=== PATIENT | male | born 1950 | race Two or more races ===

== ENCOUNTER 2016-12-28 01:03 | Day surgery (SDC) | payer MEDICARE, OTHER ==
[~2016-12-28] VITALS: Ht 177.8 cm; Wt 93.0 kg
[~2016-12-28 01:03] MED LIST: ALIS300T PO; ASCO500C49 PO; ASPI81CH43 OR; CARV6.2551 PO; CHL4PW GT; CHOL100040 PO; FURO40TA OR; LISI40TA PO; OMEG100078 PO; OXYM-15; POTA20TA53 PO; SIMV-13 OR; VANC500I IV
[2016-12-28 01:39] LABS: Basophils # (auto) 0.1 uL; Basophils % (auto) 0.8 % (0.0-2.0); Eosinophils # (auto) 0 uL; Eosinophils % (auto) 0.3 % (0.0-7.0); Hematocrit 30.8 % (41.0-53.0); Hemoglobin 9.7 g/dL (13.5-17.5); Lymphocytes # (auto) 1.1 uL; Mean Corpuscular Hemoglobin 27.6 pg (28.0-32.0); Mean Corpuscular Hgb Conc. 31.4 g/dL (32.0-36.0); Mean Corpuscular Volume 87.8 fL (80.0-100.0); Monocytes # (auto) 0.9 uL; Monocytes % (auto) 10.2 % (0.0-12.0); Neutrophils # (auto) 6.8 uL; Neutrophils % (auto) 76.7 % (37.0-80.0); Platelet Count (auto) 286 10^3/uL (140-450); Red Cell Distribution Width 16.5 % (11.6-16.0); White Blood Cell 8.9 10^3/uL (4.4-10.8)
[2016-12-28 01:55] LABS: INR 1.13 (0.9-1.15); Partial Thromboplastin Time 36.2 sec (22.64-33.71); Prothrombin Time 12.2 sec (9.37-12.3)
[2016-12-28 01:57] LABS: Albumin 2.6 g/dL (3.4-5.0); BUN/Creatinine Ratio 30.8; Calcium 8.5 mg/dL (8.5-10.1)
[2016-12-28 01:59] LABS: Bilirubin, Total 1.5 mg/dL (0.2-1.0); Total Protein 7.6 g/dL (6.4-8.2)
[2016-12-28] MEDS ORDERED: SODIUM CHLORIDE 0.9% 1,000 ML IV ONE (06:56)
[2016-12-28] MEDS ORDERED: ceFAZolin 1GM/50ML D5W 50 ML IV ONE (09:59)
[2016-12-28] MEDS ORDERED: ACCU-CHEK COMFORT CURVE STRIP VI ONE (10:15)
[2016-12-28] MEDS ORDERED: HYDROmorphone HCL 2 MG/ML VL IV PRN (10:15)
[2016-12-28] MEDS ORDERED: METOCLOPRAMIDE HCL 5MG/ml INJ 2ml VIAL IV ONE (10:15)
[2016-12-28 11:59] VITALS: BP 140/69
[2017-01-18] MEDS ORDERED: INS7030I SC (12:54)
[2017-01-18] MEDS ORDERED: OMEG1CAP31 PO (12:54)
[2017-01-18] MEDS ORDERED: MULTCAP45 PO (12:54)
[2017-01-18] MEDS ORDERED: CLOP75TA28 PO (12:54)
[2017-01-18] MEDS ORDERED: [UNRECOGNIZED DRUG - CODE] IV (12:54)
== END 2016-12-28 12:09 | disposition home or self-care (01) ==
LOC: ER 01:05 → OR 1 01:06 → ER 09:47 → OR 1 12:09
PROVIDERS: ATTEND Podiatrist Foot & Ankle Surgery
DX: T87.81 Dehiscence of amputation stump (principal); I20.9 Angina pectoris, unspecified; I50.9 Heart failure, unspecified; F41.9 Anxiety disorder, unspecified; Z95.1 Presence of aortocoronary bypass graft
CPT/HCPCS: 15002; 15271; 36415; 71020; 73630; 80053; 82962; 83735; 85025; 85610; 85730; 87070; 87075; 87205; 88304; 88312; 93005; C1887; J0690; J2250; J2405; J2704; J3010; J3490; J7030; L3260; Q4126; Q4137

== ENCOUNTER → 2017-01-03 | Outpatient (CLI) | payer MEDICARE, OTHER ==
[2017-01-03] VITALS (8 sets, daily range): BP systolic 119–148; BP diastolic 59–77
[~2017-01-03] MED LIST changes: +CYANOCOBALAMIN (B-12) 1000 MCG/1 ML VIAL IM ONE; +CYANOCOBALAMIN (B-12) 1000 MCG/1 ML VIAL ONE; +DOBUTamine 1000MCG/ML 250 ML IV ONE; +FUROSEMIDE 100 MG/10ML VIAL IV ONE; +FUROSEMIDE 40 MG/4 ML VIAL ONE; +POTASSIUM CHL 10 Meq TABLET PO ONE; +POTASSIUM CHL 20 Meq TABLET PO ONE
[2017-01-03 10:26] LABS: Basophils # (auto) 0 uL; Basophils % (auto) 0.5 % (0.0-2.0); Eosinophils # (auto) 0 uL; Eosinophils % (auto) 0.5 % (0.0-7.0); Hematocrit 27.7 % (41.0-53.0); Hemoglobin 8.9 g/dL (13.5-17.5); Lymphocytes # (auto) 0.9 uL; Lymphocytes % (auto) 13.5 % (10.0-50.0); Mean Corpuscular Hemoglobin 27.8 pg (28.0-32.0); Mean Corpuscular Hgb Conc. 32.2 g/dL (32.0-36.0); Mean Corpuscular Volume 86.3 fL (80.0-100.0); Monocytes # (auto) 0.8 uL; Monocytes % (auto) 11.9 % (0.0-12.0); Neutrophils # (auto) 4.8 uL; Neutrophils % (auto) 73.6 % (37.0-80.0); Platelet Count (auto) 243 10^3/uL (140-450); Red Cell Distribution Width 18.1 % (11.6-16.0); SUSPECT VIEW TRANSMISSION; White Blood Cell 6.5 10^3/uL (4.4-10.8)
[2017-01-03 10:36] LABS: BUN/Creatinine Ratio 35.5; Calcium 8.2 mg/dL (8.5-10.1); Potassium 4.4 mmol/L (3.5-5.1)
[2017-01-03 10:46] LABS: B-Type Natriuretic Peptide 1644.62 pg/mL (0-100); Temperature: 22.5 C (20.0-25.0)
== END | disposition home or self-care (01) ==
LOC: CHF HDHVI 08:58
PROVIDERS: ATTEND Internal Medicine Cardiovascular Disease
DX: I10 Essential (primary) hypertension (principal); E11.9 Type 2 diabetes mellitus without complications; D64.9 Anemia, unspecified; E55.9 Vitamin D deficiency, unspecified
CPT/HCPCS: 36415; 80048; 82306; 83036; 83735; 83880; 85025; 96365; 96366; 96372; 96374; 96375; G0463; J1642

== ENCOUNTER → 2017-01-05 | Outpatient (CLI) | payer MEDICARE, OTHER ==
[2017-01-03 12:49] VITALS: BP 150/70
[2017-01-05] VITALS (8 sets, daily range): BP systolic 130–151; BP diastolic 61–80
[~2017-01-05] MED LIST changes: -CYANOCOBALAMIN (B-12) 1000 MCG/1 ML VIAL IM ONE; -CYANOCOBALAMIN (B-12) 1000 MCG/1 ML VIAL ONE; -FUROSEMIDE 100 MG/10ML VIAL IV ONE; +FUROSEMIDE 40 MG/4 ML VIAL IV ONE; -POTASSIUM CHL 20 Meq TABLET PO ONE
== END | disposition home or self-care (01) ==
LOC: CHF HDHVI 09:03
PROVIDERS: ATTEND Internal Medicine Cardiovascular Disease
DX: I11.0 Hypertensive heart disease with heart failure (principal); I50.9 Heart failure, unspecified; I25.10 Atherosclerotic heart disease of native coronary artery without angina pectoris; D64.9 Anemia, unspecified; Z95.1 Presence of aortocoronary bypass graft
CPT/HCPCS: 96365; 96366; 96375; G0463; J1250; J1642; J1940

== ENCOUNTER → 2017-01-10 | Outpatient (CLI) | payer MEDICARE, OTHER ==
[2017-01-10] VITALS (10 sets, daily range): BP systolic 120–150; BP diastolic 64–74
[~2017-01-10] MED LIST changes: +CYANOCOBALAMIN (B-12) 1000 MCG/1 ML VIAL IM ONE; +CYANOCOBALAMIN (B-12) 1000 MCG/1 ML VIAL ONE
[2017-01-10 16:26] LABS: Potassium 4.5 mmol/L (3.5-5.1)
[2017-01-10 16:33] LABS: Basophils # (auto) 0 uL; Basophils % (auto) 0.5 % (0.0-2.0); Eosinophils # (auto) 0.1 uL; Eosinophils % (auto) 1.1 % (0.0-7.0); Hematocrit 26.8 % (41.0-53.0); Hemoglobin 8.7 g/dL (13.5-17.5); Lymphocytes # (auto) 1.1 uL; Lymphocytes % (auto) 14.7 % (10.0-50.0); Mean Corpuscular Hemoglobin 27.7 pg (28.0-32.0); Mean Corpuscular Hgb Conc. 32.4 g/dL (32.0-36.0); Mean Corpuscular Volume 85.3 fL (80.0-100.0); Mean Platelet Volume 11.4 fL (7.4-10.4); Monocytes # (auto) 0.9 uL; Monocytes % (auto) 11.7 % (0.0-12.0); Neutrophils # (auto) 5.2 uL; Nucleated Red Blood Cells % 2.3 %; Platelet Count (auto) 234 10^3/uL (140-450); Red Cell Distribution Width 18.2 % (11.6-16.0); SUSPECT VIEW TRANSMISSION; White Blood Cell 7.3 10^3/uL (4.4-10.8)
[2017-01-10 16:48] LABS: B-Type Natriuretic Peptide 1137.46 pg/mL (0-100); Temperature: 23.4 C (20.0-25.0)
== END | disposition home or self-care (01) ==
LOC: CHF HDHVI 09:00
PROVIDERS: ATTEND Internal Medicine Cardiovascular Disease
DX: I50.9 Heart failure, unspecified (principal); R94.4 Abnormal results of kidney function studies; D64.9 Anemia, unspecified; E87.6 Hypokalemia
CPT/HCPCS: 36415; 82565; 83880; 84132; 84520; 85025; 96365; 96366; 96372; 96375; G0463; J1642

== ENCOUNTER → 2017-01-12 | Outpatient (CLI) | payer MEDICARE, OTHER ==
[~2017-01-12] VITALS: Ht 165.1 cm; Wt 90.3 kg
[2017-01-12] VITALS (13 sets, daily range): BP systolic 109–140; BP diastolic 56–72
[~2017-01-12] MED LIST changes: -CYANOCOBALAMIN (B-12) 1000 MCG/1 ML VIAL IM ONE; -CYANOCOBALAMIN (B-12) 1000 MCG/1 ML VIAL ONE; -FUROSEMIDE 40 MG/4 ML VIAL IV ONE; -FUROSEMIDE 40 MG/4 ML VIAL ONE; -POTASSIUM CHL 10 Meq TABLET PO ONE; +SODIUM CHLORIDE 0.9% 1,000 ML IV ONE
[2017-01-12 10:32] LABS: Temperature: 24.8 C (20.0-25.0)
== END | disposition home or self-care (01) ==
LOC: CHF HDHVI 09:12
PROVIDERS: ATTEND Internal Medicine Cardiovascular Disease
DX: R94.4 Abnormal results of kidney function studies (principal); I50.9 Heart failure, unspecified
CPT/HCPCS: 36415; 82565; 83880; 84520; 96365; 96366; 96367; G0463; J1642

== ENCOUNTER → 2017-01-17 | Outpatient (CLI) | payer MEDICARE, OTHER ==
[2017-01-17] VITALS (11 sets, daily range): BP systolic 129–145; BP diastolic 68–75
[~2017-01-17] MED LIST changes: -SODIUM CHLORIDE 0.9% 1,000 ML IV ONE; +SODIUM CHLORIDE 0.9% 500 ML IV ONE
[2017-01-17 10:21] LABS: Basophils # (auto) 0 uL; Basophils % (auto) 0.1 % (0.0-2.0); Eosinophils # (auto) 0 uL; Eosinophils % (auto) 0.5 % (0.0-7.0); Hematocrit 26.8 % (41.0-53.0); Hemoglobin 8.6 g/dL (13.5-17.5); Lymphocytes # (auto) 1.2 uL; Lymphocytes % (auto) 14.8 % (10.0-50.0); Mean Corpuscular Volume 84.6 fL (80.0-100.0); Mean Platelet Volume 10.1 fL (7.4-10.4); Monocytes # (auto) 0.6 uL; Monocytes % (auto) 7.5 % (0.0-12.0); Neutrophils # (auto) 6.3 uL; Neutrophils % (auto) 77.1 % (37.0-80.0); Platelet Count (auto) 288 10^3/uL (140-450); Red Cell Distribution Width 18.8 % (11.6-16.0); SUSPECT VIEW TRANSMISSION; White Blood Cell 8.1 10^3/uL (4.4-10.8)
[2017-01-17 10:42] LABS: BUN/Creatinine Ratio 42.5; Calcium 8.4 mg/dL (8.5-10.1); Potassium 4.5 mmol/L (3.5-5.1)
[2017-01-17 10:51] LABS: B-Type Natriuretic Peptide 1204.93 pg/mL (0-100); Temperature: 23.5 C (20.0-25.0)
== END | disposition home or self-care (01) ==
LOC: CHF HDHVI 09:08
PROVIDERS: ATTEND Internal Medicine Cardiovascular Disease
DX: I10 Essential (primary) hypertension (principal); D64.9 Anemia, unspecified; I50.9 Heart failure, unspecified
CPT/HCPCS: 36415; 80048; 83880; 85025; 96365; 96366; 96367; G0463; J1642

== ENCOUNTER → 2017-01-24 | Outpatient (CLI) | payer MEDICARE, OTHER ==
[2017-01-24] VITALS (8 sets, daily range): BP systolic 140–158; BP diastolic 72–80
[~2017-01-24] MED LIST changes: -CHL4PW GT; +CLOP75TA28 PO; +CYANOCOBALAMIN (B-12) 1000 MCG/1 ML VIAL IM ONE; +CYANOCOBALAMIN (B-12) 1000 MCG/1 ML VIAL ONE; +INS7030I SC; +MULTCAP45 PO; -OMEG100078 PO; +OMEG1CAP31 PO; +SILVER SULFADIAZINE 1 % TOPICAL CREAM 50GM TOP ONE; -SIMV-13 OR; -SODIUM CHLORIDE 0.9% 500 ML IV ONE; -VANC500I IV; +[UNRECOGNIZED DRUG - CODE] IV
[2017-01-24 12:24] LABS: Basophils # (auto) 0 uL; Basophils % (auto) 0.2 % (0.0-2.0); Eosinophils # (auto) 0 uL; Eosinophils % (auto) 0.5 % (0.0-7.0); Hematocrit 31.3 % (41.0-53.0); Hemoglobin 10.1 g/dL (13.5-17.5); Lymphocytes % (auto) 12.6 % (10.0-50.0); Mean Corpuscular Hemoglobin 27.5 pg (28.0-32.0); Mean Corpuscular Hgb Conc. 32.3 g/dL (32.0-36.0); Mean Corpuscular Volume 85.4 fL (80.0-100.0); Mean Platelet Volume 10.9 fL (7.4-10.4); Monocytes # (auto) 0.8 uL; Monocytes % (auto) 10.6 % (0.0-12.0); Neutrophils # (auto) 5.9 uL; Neutrophils % (auto) 76.1 % (37.0-80.0); Platelet Count (auto) 243 10^3/uL (140-450); Red Cell Distribution Width 18.5 % (11.6-16.0); SUSPECT VIEW TRANSMISSION; White Blood Cell 7.7 10^3/uL (4.4-10.8)
[2017-01-24 12:50] LABS: BUN/Creatinine Ratio 30.5; Calcium 8.6 mg/dL (8.5-10.1); Potassium 4.6 mmol/L (3.5-5.1)
[2017-01-24 13:06] LABS: B-Type Natriuretic Peptide 1624.03 pg/mL (0-100); Temperature: 23.3 C (20.0-25.0)
== END | disposition home or self-care (01) ==
LOC: Rad HDHVI 09:09
PROVIDERS: ATTEND Internal Medicine Cardiovascular Disease
DX: I10 Essential (primary) hypertension (principal); I50.9 Heart failure, unspecified; D64.9 Anemia, unspecified
CPT/HCPCS: 36415; 80048; 83880; 85025; 96365; 96366; 96372; G0463; J1642

== ENCOUNTER → 2017-01-27 | Outpatient (CLI) | payer MEDICARE, OTHER ==
[~2017-01-27] MED LIST changes: -CYANOCOBALAMIN (B-12) 1000 MCG/1 ML VIAL IM ONE; -CYANOCOBALAMIN (B-12) 1000 MCG/1 ML VIAL ONE; -SILVER SULFADIAZINE 1 % TOPICAL CREAM 50GM TOP ONE
[2017-01-27 13:30] VITALS: BP 123/59
== END | disposition home or self-care (01) ==
LOC: CHF HDHVI 08:58
PROVIDERS: ATTEND Internal Medicine Cardiovascular Disease
DX: I50.9 Heart failure, unspecified (principal)
CPT/HCPCS: 96365; 96366; G0463; J1250; J1642

== ENCOUNTER → 2017-01-31 | Outpatient (CLI) | payer MEDICARE, OTHER ==
[2017-01-31] VITALS (9 sets, daily range): BP systolic 143–154; BP diastolic 76–92
[~2017-01-31] MED LIST changes: +CYANOCOBALAMIN (B-12) 1000 MCG/1 ML VIAL IM ONE; +CYANOCOBALAMIN (B-12) 1000 MCG/1 ML VIAL ONE; +SILVER SULFADIAZINE 1 % TOPICAL CREAM 50GM TOP ONE
[2017-01-31 12:01] LABS: Basophils # (auto) 0 uL; Basophils % (auto) 0.2 % (0.0-2.0); DEFINITIVE VIEW TRANSMISSION; Eosinophils # (auto) 0.1 uL; Eosinophils % (auto) 1.7 % (0.0-7.0); Hematocrit 29.2 % (41.0-53.0); Hemoglobin 9.5 g/dL (13.5-17.5); Lymphocytes # (auto) 1.2 uL; Lymphocytes % (auto) 16.6 % (10.0-50.0); Mean Corpuscular Hemoglobin 27.8 pg (28.0-32.0); Mean Corpuscular Hgb Conc. 32.6 g/dL (32.0-36.0); Mean Corpuscular Volume 85.5 fL (80.0-100.0); Mean Platelet Volume 11.3 fL (7.4-10.4); Monocytes # (auto) 0.7 uL; Monocytes % (auto) 9.4 % (0.0-12.0); Neutrophils # (auto) 5.2 uL; Neutrophils % (auto) 72.1 % (37.0-80.0); Platelet Count (auto) 223 10^3/uL (140-450); Red Cell Distribution Width 19.6 % (11.6-16.0); SUSPECT VIEW TRANSMISSION; White Blood Cell 7.2 10^3/uL (4.4-10.8)
[2017-01-31 12:27] LABS: BUN/Creatinine Ratio 28.2; Calcium 8.2 mg/dL (8.5-10.1); Magnesium 2.8 mg/dL (1.6-2.6); Potassium 4.3 mmol/L (3.5-5.1)
[2017-01-31 12:29] LABS: B-Type Natriuretic Peptide 1712.55 pg/mL (0-100); Temperature: 23.4 C (20.0-25.0)
== END | disposition home or self-care (01) ==
LOC: CHF HDHVI 08:39
PROVIDERS: ATTEND Internal Medicine Cardiovascular Disease
DX: I10 Essential (primary) hypertension (principal); E83.42 Hypomagnesemia; I50.9 Heart failure, unspecified; D64.9 Anemia, unspecified
CPT/HCPCS: 36415; 80048; 83735; 83880; 85025; 96365; 96366; 96372; G0463; J1642

== ENCOUNTER → 2017-02-02 | Outpatient (CLI) | payer MEDICARE, OTHER ==
[2017-02-02] VITALS (7 sets, daily range): BP systolic 143–160; BP diastolic 73–84
[~2017-02-02] MED LIST changes: -CYANOCOBALAMIN (B-12) 1000 MCG/1 ML VIAL IM ONE; -CYANOCOBALAMIN (B-12) 1000 MCG/1 ML VIAL ONE; +FERR1TAB5 PO
== END | disposition home or self-care (01) ==
LOC: CHF HDHVI 08:02
PROVIDERS: ATTEND Internal Medicine Cardiovascular Disease
DX: I50.9 Heart failure, unspecified (principal); E11.9 Type 2 diabetes mellitus without complications
CPT/HCPCS: 96365; 96366; G0463; J1250; J1642

== ENCOUNTER → 2017-02-03 | Outpatient (CLI) | payer MEDICARE, OTHER ==
[~2017-02-03] MED LIST changes: -DOBUTamine 1000MCG/ML 250 ML IV ONE; -FERR1TAB5 PO; -SILVER SULFADIAZINE 1 % TOPICAL CREAM 50GM TOP ONE
[2017-02-03 11:40] VITALS: BP 125/62
[2017-02-03 12:30] VITALS: BP 143/72
== END | disposition home or self-care (01) ==
LOC: CHF HDHVI 11:43
PROVIDERS: ATTEND Internal Medicine Cardiovascular Disease
DX: I25.118 Atherosclerotic heart disease of native coronary artery with other forms of angina pectoris (principal); I50.9 Heart failure, unspecified; R53.83 Other fatigue; M79.604 Pain in right leg
CPT/HCPCS: G0463

== ENCOUNTER → 2017-02-07 | Outpatient (CLI) | payer MEDICARE, OTHER ==
[~2017-02-07] MED LIST changes: +SILVER SULFADIAZINE 1 % TOPICAL CREAM 50GM TOP ONE
[2017-02-07 15:10] VITALS: BP 144/63
[2017-02-07 15:55] VITALS: BP 132/63
[2017-02-07 16:50] LABS: Basophils # (auto) 0 uL; Basophils % (auto) 0.3 % (0.0-2.0); DEFINITIVE VIEW TRANSMISSION; Eosinophils # (auto) 0.1 uL; Eosinophils % (auto) 1.3 % (0.0-7.0); Hematocrit 30.8 % (41.0-53.0); Hemoglobin 10.2 g/dL (13.5-17.5); Lymphocytes % (auto) 13.7 % (10.0-50.0); Mean Corpuscular Hemoglobin 28.5 pg (28.0-32.0); Mean Corpuscular Volume 86.2 fL (80.0-100.0); Mean Platelet Volume 10.8 fL (7.4-10.4); Monocytes # (auto) 0.7 uL; Monocytes % (auto) 10.4 % (0.0-12.0); Neutrophils # (auto) 5.2 uL; Neutrophils % (auto) 74.3 % (37.0-80.0); Nucleated Red Blood Cells % 2.9 %; Platelet Count (auto) 278 10^3/uL (140-450); SUSPECT VIEW TRANSMISSION
[2017-02-07 16:57] LABS: Red Cell Distribution Width 22.7 % (11.6-16.0)
[2017-02-07 17:27] LABS: Potassium 4.2 mmol/L (3.5-5.1)
[2017-02-07 17:50] LABS: B-Type Natriuretic Peptide 1586.37 pg/mL (0-100); Temperature: 22.7 C (20.0-25.0)
[2017-02-07 18:49] LABS: Platelet Estimate Adequate
[2017-02-07 18:50] LABS: Anisocytosis Moderate; Burr Cells FEW; Hypochromia Moderate; Large Platelets FEW; Ovalocytes FEW
[2017-02-07 18:51] LABS: Tear Drop Cells FEW
== END | disposition home or self-care (01) ==
LOC: CHF HDHVI 15:11
PROVIDERS: ATTEND Internal Medicine Cardiovascular Disease
DX: R94.4 Abnormal results of kidney function studies (principal); E87.6 Hypokalemia; D64.9 Anemia, unspecified; I50.9 Heart failure, unspecified; R89.9 Unspecified abnormal finding in specimens from other organs, systems and tissues
CPT/HCPCS: 36415; 82565; 83880; 84132; 84520; 85025; 87205; G0463

== ENCOUNTER 2017-02-09 22:27 | Inpatient (IN) | payer MEDICARE, OTHER ==
[~2017-02-09] VITALS: Ht 177.8 cm; Wt 83.4 kg
[~2017-02-09 22:27] MED LIST changes: -DEXTROSE (50%) 50ML SYRG IV PRN; -FERR1TAB5 PO; -MORPHINE SULF INJ 2 MG/ML SYRINGE 1ML IV PRN; -NITROGLYCERIN 0.4 MG SL TAB SL PRN; -VANCOMYCIN 1GM/250ML D5W 250 ML IV SCH
[2017-02-09] MEDS ORDERED: FERR1TAB5 PO (22:52)
[2017-02-09 23:00] VITALS: BP 151/65
[2017-02-10] VITALS (7 sets, daily range): BP systolic 116–134; BP diastolic 51–67
[2017-02-10] MEDS ORDERED: MORPHINE SULF INJ 2 MG/ML SYRINGE 1ML IV PRN (01:30)
[2017-02-10] MEDS: DOBUTamine 1000MCG/ML 250 ML IV SCH ×2 (01:30→10:18)
[2017-02-10] MEDS ORDERED: OXYMETAZOLINE HCL 0.05 % NASAL SPRAY 15ML PRN ×2 (02:00→05:15)
[2017-02-10] MEDS ORDERED: GENTAMICIN SULFATE IV ONE (03:00)
[2017-02-10] MEDS ORDERED: SODIUM CHL 0.9% IV ONE (03:00)
[2017-02-10] MEDS: VANCOMYCIN 1GM/250ML D5W 250 ML IV SCH (03:40)
[2017-02-10] MEDS: InsuLIN REG 1unit/0.01ml Soln (100units/ml) SC SCH ×4 (06:43→23:02)
[2017-02-10] MEDS: ACCU-CHEK COMFORT CURVE STRIP VI SCH ×4 (06:43→22:00)
[2017-02-10] MEDS: INSULIN 70/30 1unit/0.01ml Susp (100units/ml) SC SCH ×4 (07:05→23:03)
[2017-02-10] MEDS ORDERED: TEKTURNA 300 MG PO SCH (10:00)
[2017-02-10] MEDS: CLOPIDOGREL BISULFATE 75 MG TAB PO SCH ×2 (10:00→10:18)
[2017-02-10] MEDS ORDERED: FERROUS SULFATE 325 MG TAB PO SCH (10:00)
[2017-02-10] MEDS: FERROUS SULFATE 325 MG TAB PO SCH (10:18)
[2017-02-10] MEDS: ASPirin-EC 81 mg tab PO SCH (10:18)
[2017-02-10] MEDS: FUROSEMIDE 40 MG TAB PO SCH (10:21)
[2017-02-10] MEDS: POTASSIUM CHL 20 Meq TABLET PO SCH (10:21)
[2017-02-10] MEDS: CHOLECALCIFEROL (VITD3) 1,000 UNIT TAB PO SCH (10:21)
[2017-02-10] MEDS: ASCORBIC ACID 500 MG TAB PO SCH (10:22)
[2017-02-10] MEDS: MULTIPLE VITAMIN TAB PO SCH (10:22)
[2017-02-10] MEDS: TEKTURNA 300 MG PO SCH (10:23)
[2017-02-10] MEDS: LISINOPRIL 20 MG TAB PO SCH (10:24)
[2017-02-10] MEDS: CARVEDILOL 3.125 MG TAB PO SCH ×2 (10:25→23:03)
[2017-02-11] MEDS: DOBUTamine 1000MCG/ML 250 ML IV SCH (04:16)
[2017-02-11] MEDS: VANCOMYCIN 1GM/250ML D5W 250 ML IV SCH (04:17)
[2017-02-11 05:00] VITALS: BP 129/60
[2017-02-11] MEDS: INSULIN 70/30 1unit/0.01ml Susp (100units/ml) SC SCH ×4 (06:18→22:00)
[2017-02-11] MEDS: ACCU-CHEK COMFORT CURVE STRIP VI SCH ×4 (06:18→21:57)
[2017-02-11] MEDS: InsuLIN REG 1unit/0.01ml Soln (100units/ml) SC SCH ×4 (06:18→21:57)
[2017-02-11 08:00] VITALS: BP 127/67
[2017-02-11 09:00] VITALS: BP 127/67
[2017-02-11 10:38] LABS: Basophils # (auto) 0 uL; Basophils % (auto) 0.1 % (0.0-2.0); DEFINITIVE VIEW TRANSMISSION; Eosinophils # (auto) 0 uL; Eosinophils % (auto) 0.1 % (0.0-7.0); Hematocrit 28.5 % (41.0-53.0); Hemoglobin 9.5 g/dL (13.5-17.5); Lymphocytes # (auto) 0.9 uL; Lymphocytes % (auto) 9.3 % (10.0-50.0); Mean Corpuscular Hemoglobin 28.8 pg (28.0-32.0); Mean Corpuscular Hgb Conc. 33.4 g/dL (32.0-36.0); Mean Corpuscular Volume 86.1 fL (80.0-100.0); Mean Platelet Volume 10.1 fL (7.4-10.4); Monocytes % (auto) 9.7 % (0.0-12.0); Neutrophils # (auto) 8.2 uL; Neutrophils % (auto) 80.8 % (37.0-80.0); Platelet Count (auto) 251 10^3/uL (140-450); SUSPECT VIEW TRANSMISSION; White Blood Cell 10.2 10^3/uL (4.4-10.8)
[2017-02-11] MEDS: ASCORBIC ACID 500 MG TAB PO SCH (10:39)
[2017-02-11] MEDS: CLOPIDOGREL BISULFATE 75 MG TAB PO SCH (10:39)
[2017-02-11] MEDS: CHOLECALCIFEROL (VITD3) 1,000 UNIT TAB PO SCH (10:39)
[2017-02-11] MEDS: POTASSIUM CHL 20 Meq TABLET PO SCH (10:39)
[2017-02-11] MEDS: FERROUS SULFATE 325 MG TAB PO SCH (10:39)
[2017-02-11 10:40] LABS: Red Cell Distribution Width 22.3 % (11.6-16.0)
[2017-02-11] MEDS: FUROSEMIDE 40 MG TAB PO SCH (10:40)
[2017-02-11] MEDS: MULTIPLE VITAMIN TAB PO SCH (10:40)
[2017-02-11] MEDS: CARVEDILOL 3.125 MG TAB PO SCH ×2 (10:41→21:51)
[2017-02-11] MEDS: LISINOPRIL 20 MG TAB PO SCH (10:41)
[2017-02-11 10:55] LABS: BUN/Creatinine Ratio 28.7; Bilirubin, Total 2.2 mg/dL (0.2-1.0); Calcium 8.1 mg/dL (8.5-10.1); Potassium 4.4 mmol/L (3.5-5.1)
[2017-02-11 11:05] LABS: Anisocytosis Moderate
[2017-02-11 11:06] LABS: Burr Cells FEW; Platelet Estimate Adequate; Tear Drop Cells FEW
[2017-02-11 11:07] LABS: Large Platelets FEW; Ovalocytes FEW
[2017-02-11] MEDS: TEKTURNA 300 MG PO SCH (12:34)
[2017-02-11 13:00] VITALS: BP 129/60
[2017-02-11 13:00] LABS: INR 1.13 (0.9-1.15); Prothrombin Time 12.3 sec (9.37-12.3)
[2017-02-11] MEDS: cefTRIAXone 1GM/50ML D5W 50 ML IV SCH (13:42)
[2017-02-11] MEDS ORDERED: EPOETIN ALFA 4,000 UNIT/ML VL SC ONE (14:00)
[2017-02-11] MEDS: FUROSEMIDE INJECTION 500 MG in D5W 5% 450 ML IV SCH (14:11)
[2017-02-11 17:00] VITALS: BP 134/63
[2017-02-11] MEDS ORDERED: LIDOCAINE 1% HCL (LOCAL ANESTH.) INJ 20ML MDV ID ONE (18:30)
[2017-02-11] MEDS: SODIUM CHLOR 0.9% PF (SALINE LOCK) 10ML VIAL IV SCH (21:51)
[2017-02-11 22:00] VITALS: BP 130/60
[2017-02-12] MEDS: DOBUTamine 1000MCG/ML 250 ML IV SCH ×2 (00:27→21:09)
[2017-02-12] MEDS: VANCOMYCIN 1GM/250ML D5W 250 ML IV SCH (04:25)
[2017-02-12 06:00] VITALS: BP 128/62
[2017-02-12] MEDS: ACCU-CHEK COMFORT CURVE STRIP VI SCH ×4 (06:44→21:57)
[2017-02-12] MEDS: INSULIN 70/30 1unit/0.01ml Susp (100units/ml) SC SCH ×4 (06:44→21:57)
[2017-02-12] MEDS: InsuLIN REG 1unit/0.01ml Soln (100units/ml) SC SCH ×4 (06:44→21:57)
[2017-02-12 07:15] LABS: BUN/Creatinine Ratio 24.6; Calcium 8.5 mg/dL (8.5-10.1); Potassium 3.8 mmol/L (3.5-5.1)
[2017-02-12] MEDS: cefTRIAXone 1GM/50ML D5W 50 ML IV SCH (09:13)
[2017-02-12 09:21] VITALS: BP 123/56
[2017-02-12] MEDS: FERROUS SULFATE 325 MG TAB PO SCH (09:52)
[2017-02-12] MEDS: LISINOPRIL 20 MG TAB PO SCH (09:53)
[2017-02-12] MEDS: TEKTURNA 300 MG PO SCH (09:53)
[2017-02-12] MEDS: CHOLECALCIFEROL (VITD3) 1,000 UNIT TAB PO SCH (09:53)
[2017-02-12] MEDS: POTASSIUM CHL 20 Meq TABLET PO SCH (09:54)
[2017-02-12] MEDS: CARVEDILOL 3.125 MG TAB PO SCH ×2 (09:54→21:56)
[2017-02-12] MEDS: MULTIPLE VITAMIN TAB PO SCH (09:54)
[2017-02-12] MEDS: ASCORBIC ACID 500 MG TAB PO SCH (09:54)
[2017-02-12] MEDS: SODIUM CHLOR 0.9% PF (SALINE LOCK) 10ML VIAL IV SCH ×2 (09:54→21:56)
[2017-02-12] MEDS: ASPirin-EC 81 mg tab PO SCH (09:54)
[2017-02-12] MEDS: CLOPIDOGREL BISULFATE 75 MG TAB PO SCH (09:55)
[2017-02-12 13:16] VITALS: BP 136/62
[2017-02-12] MEDS: FUROSEMIDE INJECTION 500 MG in D5W 5% 450 ML IV SCH (14:46)
[2017-02-12 17:49] VITALS: BP 135/64
[2017-02-12 22:00] VITALS: BP 122/69
[2017-02-13] MEDS: VANCOMYCIN 1GM/250ML D5W 250 ML IV SCH (04:10)
[2017-02-13 04:30] VITALS: BP 145/60
[2017-02-13] MEDS: ACCU-CHEK COMFORT CURVE STRIP VI SCH ×4 (06:17→21:53)
[2017-02-13] MEDS: InsuLIN REG 1unit/0.01ml Soln (100units/ml) SC SCH ×4 (06:24→21:55)
[2017-02-13] MEDS: INSULIN 70/30 1unit/0.01ml Susp (100units/ml) SC SCH ×3 (06:25→21:53)
[2017-02-13 08:00] VITALS: BP 123/53
[2017-02-13 09:13] VITALS: BP 123/53
[2017-02-13] MEDS: SODIUM CHLOR 0.9% PF (SALINE LOCK) 10ML VIAL IV SCH ×2 (09:57→21:50)
[2017-02-13] MEDS: cefTRIAXone 1GM/50ML D5W 50 ML IV SCH (09:57)
[2017-02-13] MEDS: FERROUS SULFATE 325 MG TAB PO SCH (09:58)
[2017-02-13] MEDS: TEKTURNA 300 MG PO SCH (09:58)
[2017-02-13] MEDS: POTASSIUM CHL 20 Meq TABLET PO SCH (09:59)
[2017-02-13] MEDS: CLOPIDOGREL BISULFATE 75 MG TAB PO SCH (09:59)
[2017-02-13] MEDS: CARVEDILOL 3.125 MG TAB PO SCH ×2 (09:59→21:53)
[2017-02-13] MEDS: MULTIPLE VITAMIN TAB PO SCH (09:59)
[2017-02-13] MEDS: CHOLECALCIFEROL (VITD3) 1,000 UNIT TAB PO SCH (10:00)
[2017-02-13] MEDS: ASCORBIC ACID 500 MG TAB PO SCH (10:00)
[2017-02-13] MEDS: LISINOPRIL 20 MG TAB PO SCH (10:00)
[2017-02-13 13:12] VITALS: BP 134/61
[2017-02-13] MEDS ORDERED: EPOETIN ALFA 4,000 UNIT/ML VL IV ONE (14:45)
[2017-02-13] MEDS: DOBUTamine 1000MCG/ML 250 ML IV SCH (14:59)
[2017-02-13] MEDS: FUROSEMIDE INJECTION 500 MG in D5W 5% 450 ML IV SCH (15:00)
[2017-02-13 17:00] VITALS: BP 133/45
[2017-02-13 21:36] VITALS: BP 127/56
[2017-02-14] MEDS: VANCOMYCIN 1GM/250ML D5W 250 ML IV SCH (04:01)
[2017-02-14 05:18] VITALS: BP 132/58
[2017-02-14 05:48] LABS: Basophils # (auto) 0 uL; Basophils % (auto) 0.1 % (0.0-2.0); DEFINITIVE VIEW TRANSMISSION; Eosinophils # (auto) 0 uL; Eosinophils % (auto) 0.6 % (0.0-7.0); Hematocrit 34.1 % (41.0-53.0); Lymphocytes # (auto) 1.3 uL; Lymphocytes % (auto) 19.8 % (10.0-50.0); Mean Corpuscular Hemoglobin 28.1 pg (28.0-32.0); Mean Corpuscular Hgb Conc. 32.3 g/dL (32.0-36.0); Mean Corpuscular Volume 87.2 fL (80.0-100.0); Mean Platelet Volume 10.5 fL (7.4-10.4); Monocytes # (auto) 0.7 uL; Monocytes % (auto) 11.4 % (0.0-12.0); Neutrophils # (auto) 4.4 uL; Neutrophils % (auto) 68.1 % (37.0-80.0); Platelet Count (auto) 313 10^3/uL (140-450); SUSPECT VIEW TRANSMISSION; White Blood Cell 6.4 10^3/uL (4.4-10.8)
[2017-02-14 06:07] LABS: Nucleated Red Blood Cells % 3.9 %; Red Cell Distribution Width 22.7 % (11.6-16.0)
[2017-02-14 06:13] LABS: BUN/Creatinine Ratio 23.3; Calcium 8.5 mg/dL (8.5-10.1); Potassium 3.1 mmol/L (3.5-5.1)
[2017-02-14] MEDS: ACCU-CHEK COMFORT CURVE STRIP VI SCH ×4 (06:15→21:48)
[2017-02-14 06:16] LABS: Anisocytosis Slight; Platelet Estimate Adequate
[2017-02-14 06:17] LABS: Large Platelets FEW; Ovalocytes FEW
[2017-02-14] MEDS: InsuLIN REG 1unit/0.01ml Soln (100units/ml) SC SCH ×4 (06:41→22:09)
[2017-02-14] MEDS: INSULIN 70/30 1unit/0.01ml Susp (100units/ml) SC SCH ×4 (06:41→22:09)
[2017-02-14 09:00] VITALS: BP 124/56
[2017-02-14] MEDS: SODIUM CHLOR 0.9% PF (SALINE LOCK) 10ML VIAL IV SCH ×2 (10:00→22:10)
[2017-02-14] MEDS: DOBUTamine 1000MCG/ML 250 ML IV SCH (10:57)
[2017-02-14] MEDS: cefTRIAXone 1GM/50ML D5W 50 ML IV SCH (10:57)
[2017-02-14] MEDS: CLOPIDOGREL BISULFATE 75 MG TAB PO SCH (11:00)
[2017-02-14] MEDS: FERROUS SULFATE 325 MG TAB PO SCH (11:07)
[2017-02-14] MEDS: CARVEDILOL 3.125 MG TAB PO SCH ×2 (11:08→22:10)
[2017-02-14] MEDS: MULTIPLE VITAMIN TAB PO SCH (11:08)
[2017-02-14] MEDS: POTASSIUM CHL 20 Meq TABLET PO SCH (11:09)
[2017-02-14] MEDS: LISINOPRIL 20 MG TAB PO SCH (11:09)
[2017-02-14] MEDS: ASPirin-EC 81 mg tab PO SCH (11:09)
[2017-02-14] MEDS: ASCORBIC ACID 500 MG TAB PO SCH (12:58)
[2017-02-14] MEDS: CHOLECALCIFEROL (VITD3) 1,000 UNIT TAB PO SCH (12:58)
[2017-02-14] MEDS: TEKTURNA 300 MG PO SCH (12:58)
[2017-02-14 13:00] VITALS: BP 121/61
[2017-02-14 16:57] VITALS: BP 143/55
[2017-02-14] MEDS: FUROSEMIDE INJECTION 500 MG in D5W 5% 450 ML IV SCH (18:55)
[2017-02-14 22:43] VITALS: BP 135/57
[2017-02-15] MEDS: DOBUTamine 1000MCG/ML 250 ML IV SCH ×2 (00:02→18:01)
[2017-02-15] MEDS: VANCOMYCIN 1GM/250ML D5W 250 ML IV SCH (04:51)
[2017-02-15 05:36] VITALS: BP 140/68
[2017-02-15] MEDS: ACCU-CHEK COMFORT CURVE STRIP VI SCH ×4 (06:14→21:41)
[2017-02-15] MEDS: InsuLIN REG 1unit/0.01ml Soln (100units/ml) SC SCH ×4 (06:29→21:41)
[2017-02-15] MEDS: INSULIN 70/30 1unit/0.01ml Susp (100units/ml) SC SCH ×4 (06:29→21:41)
[2017-02-15 08:01] VITALS: BP 135/66
[2017-02-15 09:32] VITALS: BP 129/59
[2017-02-15] MEDS: TEKTURNA 300 MG PO SCH (10:00)
[2017-02-15] MEDS: MULTIPLE VITAMIN TAB PO SCH (10:30)
[2017-02-15] MEDS: ASCORBIC ACID 500 MG TAB PO SCH (10:31)
[2017-02-15] MEDS: CLOPIDOGREL BISULFATE 75 MG TAB PO SCH (10:31)
[2017-02-15] MEDS: POTASSIUM CHL 20 Meq TABLET PO SCH (10:31)
[2017-02-15] MEDS: CHOLECALCIFEROL (VITD3) 1,000 UNIT TAB PO SCH (10:31)
[2017-02-15] MEDS: LISINOPRIL 20 MG TAB PO SCH (10:33)
[2017-02-15] MEDS: cefTRIAXone 1GM/50ML D5W 50 ML IV SCH (10:34)
[2017-02-15] MEDS: CARVEDILOL 3.125 MG TAB PO SCH ×2 (10:34→21:40)
[2017-02-15] MEDS: SODIUM CHLOR 0.9% PF (SALINE LOCK) 10ML VIAL IV SCH ×2 (10:34→21:40)
[2017-02-15] MEDS: FERROUS SULFATE 325 MG TAB PO SCH (10:34)
[2017-02-15 13:00] VITALS: BP 116/52
[2017-02-15] MEDS: FUROSEMIDE INJECTION 500 MG in D5W 5% 450 ML IV SCH (14:00)
[2017-02-15] MEDS ORDERED: POTASSIUM CHL 20 Meq TABLET PO ONE (14:45)
[2017-02-15 16:22] LABS: BUN/Creatinine Ratio 19.5; Calcium 8.3 mg/dL (8.5-10.1); Potassium 3.3 mmol/L (3.5-5.1)
[2017-02-15 17:03] VITALS: BP 126/57
[2017-02-15 22:00] VITALS: BP 137/66
[2017-02-16] MEDS: VANCOMYCIN 1GM/250ML D5W 250 ML IV SCH (03:49)
[2017-02-16 05:00] VITALS: BP 134/64
[2017-02-16] MEDS: INSULIN 70/30 1unit/0.01ml Susp (100units/ml) SC SCH ×4 (06:12→21:50)
[2017-02-16] MEDS: InsuLIN REG 1unit/0.01ml Soln (100units/ml) SC SCH ×4 (06:12→21:51)
[2017-02-16] MEDS: ACCU-CHEK COMFORT CURVE STRIP VI SCH ×4 (06:12→21:51)
[2017-02-16 08:00] VITALS: BP 124/61
[2017-02-16 08:15] VITALS: BP 124/61
[2017-02-16] MEDS: CLOPIDOGREL BISULFATE 75 MG TAB PO SCH (10:00)
[2017-02-16] MEDS: SODIUM CHLOR 0.9% PF (SALINE LOCK) 10ML VIAL IV SCH ×2 (10:00→21:49)
[2017-02-16] MEDS: TEKTURNA 300 MG PO SCH (10:44)
[2017-02-16] MEDS: CARVEDILOL 3.125 MG TAB PO SCH ×2 (10:45→21:50)
[2017-02-16] MEDS: CHOLECALCIFEROL (VITD3) 1,000 UNIT TAB PO SCH (10:46)
[2017-02-16] MEDS: LISINOPRIL 20 MG TAB PO SCH (10:47)
[2017-02-16] MEDS: ASPirin-EC 81 mg tab PO SCH (10:48)
[2017-02-16] MEDS: ASCORBIC ACID 500 MG TAB PO SCH (10:48)
[2017-02-16] MEDS: POTASSIUM CHL 20 Meq TABLET PO SCH (10:48)
[2017-02-16] MEDS: FERROUS SULFATE 325 MG TAB PO SCH (10:48)
[2017-02-16] MEDS: MULTIPLE VITAMIN TAB PO SCH (10:48)
[2017-02-16] MEDS: cefTRIAXone 1GM/50ML D5W 50 ML IV SCH (12:02)
[2017-02-16 12:12] VITALS: BP 130/71
[2017-02-16] MEDS: FUROSEMIDE INJECTION 500 MG in D5W 5% 450 ML IV SCH (14:00)
[2017-02-16] MEDS: DOBUTamine 1000MCG/ML 250 ML IV SCH (15:39)
[2017-02-16 16:32] VITALS: BP 134/65
[2017-02-16 22:00] VITALS: BP 139/69
[2017-02-17] MEDS: DOBUTamine 1000MCG/ML 250 ML IV SCH (02:50)
[2017-02-17] MEDS: VANCOMYCIN 1GM/250ML D5W 250 ML IV SCH (03:59)
[2017-02-17 05:00] VITALS: BP 135/61
[2017-02-17] MEDS: INSULIN 70/30 1unit/0.01ml Susp (100units/ml) SC SCH ×3 (06:07→17:00)
[2017-02-17] MEDS: InsuLIN REG 1unit/0.01ml Soln (100units/ml) SC SCH ×3 (06:08→17:00)
[2017-02-17] MEDS: ACCU-CHEK COMFORT CURVE STRIP VI SCH ×3 (06:08→17:00)
[2017-02-17 07:56] VITALS: BP 131/64
[2017-02-17 08:10] VITALS: BP 139/69
[2017-02-17] MEDS: cefTRIAXone 1GM/50ML D5W 50 ML IV SCH (09:11)
[2017-02-17] MEDS: CLOPIDOGREL BISULFATE 75 MG TAB PO SCH (10:00)
[2017-02-17] MEDS: CARVEDILOL 3.125 MG TAB PO SCH (11:13)
[2017-02-17] MEDS: ASCORBIC ACID 500 MG TAB PO SCH (11:13)
[2017-02-17] MEDS: POTASSIUM CHL 20 Meq TABLET PO SCH (11:13)
[2017-02-17] MEDS: LISINOPRIL 20 MG TAB PO SCH (11:13)
[2017-02-17] MEDS: CHOLECALCIFEROL (VITD3) 1,000 UNIT TAB PO SCH (11:14)
[2017-02-17] MEDS: MULTIPLE VITAMIN TAB PO SCH (11:14)
[2017-02-17] MEDS: FERROUS SULFATE 325 MG TAB PO SCH (11:14)
[2017-02-17] MEDS: SODIUM CHLOR 0.9% PF (SALINE LOCK) 10ML VIAL IV SCH (11:15)
[2017-02-17] MEDS: TEKTURNA 300 MG PO SCH (11:15)
[2017-02-17 11:36] VITALS: BP 124/64
[2017-02-17] MEDS: FUROSEMIDE INJECTION 500 MG in D5W 5% 450 ML IV SCH (14:00)
[2017-02-17 16:02] VITALS: BP 124/64
[2017-02-17 16:31] VITALS: BP 124/68
== END 2017-02-17 17:05 | disposition home or self-care (01) | DRG 314 ==
LOC: TELE-EAST 22:27
PROVIDERS: ADMIT Internal Medicine Cardiovascular Disease; ATTEND Internal Medicine Cardiovascular Disease
PROC: 02HV33Z Insertion of Infusion Device into Superior Vena Cava, Percutaneous Approach (ICD-10-PCS; principal; 2017-02-11)
PROC: B548ZZA Ultrasonography of Superior Vena Cava, Guidance (ICD-10-PCS; 2017-02-11)
PROC: 05PYX3Z Removal of Infusion Device from Upper Vein, External Approach (ICD-10-PCS; 2017-02-11)
DX: T80.218A Other infection due to central venous catheter, initial encounter (principal); A41.9 Sepsis, unspecified organism; I50.23 Acute on chronic systolic (congestive) heart failure; L03.119 Cellulitis of unspecified part of limb; N17.9 Acute kidney failure, unspecified; E11.40 Type 2 diabetes mellitus with diabetic neuropathy, unspecified; I25.10 Atherosclerotic heart disease of native coronary artery without angina pectoris; I25.5 Ischemic cardiomyopathy; D64.9 Anemia, unspecified; Y84.8 Other medical procedures as the cause of abnormal reaction of the patient, or of later complication, without mention of misadventure at the time of the procedure; E11.51 Type 2 diabetes mellitus with diabetic peripheral angiopathy without gangrene; E11.21 Type 2 diabetes mellitus with diabetic nephropathy; Z71.3 Dietary counseling and surveillance; Z95.1 Presence of aortocoronary bypass graft; Z95.810 Presence of automatic (implantable) cardiac defibrillator; Y92.89 Other specified places as the place of occurrence of the external cause
CPT/HCPCS: 36415; 36569; 71010; 80048; 80053; 82565; 82962; 83880; 84132; 84520; 85025; 85610; 87081; 87205; G0463; J0696; J1580; J1642; J1815

== ENCOUNTER → 2017-02-09 | Outpatient (CLI) | payer MEDICARE, OTHER ==
[~2017-02-09] VITALS: Ht 177.8 cm; Wt 98.5 kg
[~2017-02-09] MED LIST changes: +DEXTROSE (50%) 50ML SYRG IV PRN; +FERR1TAB5 PO; +MORPHINE SULF INJ 2 MG/ML SYRINGE 1ML IV PRN; +NITROGLYCERIN 0.4 MG SL TAB SL PRN; -SILVER SULFADIAZINE 1 % TOPICAL CREAM 50GM TOP ONE; +VANCOMYCIN 1GM/250ML D5W 250 ML IV SCH
[2017-02-09 11:45] VITALS: BP 128/55
[2017-02-09 12:05] VITALS: BP 128/80
[2017-02-09 22:30] VITALS: BP 151/65
[2017-02-09 22:45] VITALS: BP 151/65
[2017-02-10 06:28] LABS: Basophils # (auto) 0 uL; Basophils % (auto) 0.1 % (0.0-2.0); DEFINITIVE VIEW TRANSMISSION; Eosinophils # (auto) 0 uL; Hematocrit 29.9 % (41.0-53.0); Hemoglobin 9.9 g/dL (13.5-17.5); Lymphocytes # (auto) 0.6 uL; Lymphocytes % (auto) 6.4 % (10.0-50.0); Mean Corpuscular Hemoglobin 28.2 pg (28.0-32.0); Mean Corpuscular Volume 85.3 fL (80.0-100.0); Mean Platelet Volume 10.4 fL (7.4-10.4); Monocytes # (auto) 0.5 uL; Monocytes % (auto) 5.4 % (0.0-12.0); Neutrophils # (auto) 7.8 uL; Neutrophils % (auto) 88.1 % (37.0-80.0); Platelet Count (auto) 266 10^3/uL (140-450); SUSPECT VIEW TRANSMISSION; White Blood Cell 8.8 10^3/uL (4.4-10.8)
[2017-02-10 06:38] LABS: Red Cell Distribution Width 22.6 % (11.6-16.0)
[2017-02-10 07:08] LABS: Platelet Estimate Adequate
[2017-02-10 07:10] LABS: Albumin 2.2 g/dL (3.4-5.0); Anisocytosis Slight; BUN/Creatinine Ratio 26.5; Calcium 8.4 mg/dL (8.5-10.1); Hypochromia Slight; Potassium 4.7 mmol/L (3.5-5.1); Tear Drop Cells FEW
[2017-02-10 07:13] LABS: Bilirubin, Total 2.8 mg/dL (0.2-1.0); Total Protein 6.8 g/dL (6.4-8.2)
[2017-02-10 07:45] VITALS: BP 134/61
== END | disposition home or self-care (01) ==
LOC: CHF HDHVI 11:10
PROVIDERS: ATTEND Internal Medicine Cardiovascular Disease
DX: I50.9 Heart failure, unspecified (principal); E11.9 Type 2 diabetes mellitus without complications; I83.009 Varicose veins of unspecified lower extremity with ulcer of unspecified site
CPT/HCPCS: G0463; J1642

== ENCOUNTER → 2017-02-23 | Outpatient (CLI) | payer MEDICARE, OTHER ==
[~2017-02-23] MED LIST changes: +CYANOCOBALAMIN (B-12) 1000 MCG/1 ML VIAL IM ONE; +CYANOCOBALAMIN (B-12) 1000 MCG/1 ML VIAL ONE; +FERR1TAB5 PO; +SILVER SULFADIAZINE 1 % TOPICAL CREAM 50GM TOP ONE
[2017-02-23 12:05] VITALS: BP 117/61
[2017-02-23 16:26] LABS: BUN/Creatinine Ratio 28.2; Calcium 8.8 mg/dL (8.5-10.1); Potassium 4.7 mmol/L (3.5-5.1)
[2017-02-23 16:31] LABS: Hepatitis B Surface Antibody Negative
[2017-02-23 16:32] LABS: B-Type Natriuretic Peptide 1433.75 pg/mL (0-100)
[2017-02-23 16:36] LABS: CONDITION AutoValidated; DEFINITIVE SEE PRINTOUT; Hemoglobin 9.6 g/dL (13.5-17.5); Mean Corpuscular Hemoglobin 28.6 pg (28.0-32.0); Mean Corpuscular Hgb Conc. 33.2 g/dL (32.0-36.0); Mean Corpuscular Volume 86.3 fL (80.0-100.0); Mean Platelet Volume 10.8 fL (7.4-10.4); Platelet Count (auto) 263 10^3/uL (140-450); SUSPECT SEE PRINTOUT
[2017-02-23 16:40] LABS: Red Cell Distribution Width 22.8 % (11.6-16.0)
[2017-02-23 16:41] LABS: Metamyelocytes % 0; Myelocytes % 0; Promyelocytes % 0; Reactive Lymphocytes 0
[2017-02-23 16:44] LABS: Temperature: 24.1 C (20.0-25.0)
[2017-02-23 17:21] LABS: Anisocytosis Moderate; Burr Cells FEW; Giant Platelets Few; Platelet Estimate Adequate
[2017-02-23 17:22] LABS: Large Platelets FEW; Tear Drop Cells FEW
== END | disposition home or self-care (01) ==
LOC: CHF HDHVI 10:39
PROVIDERS: ATTEND Internal Medicine Cardiovascular Disease
DX: B20 Human immunodeficiency virus [HIV] disease (principal); K75.9 Inflammatory liver disease, unspecified; I10 Essential (primary) hypertension; I50.9 Heart failure, unspecified; D64.9 Anemia, unspecified
CPT/HCPCS: 36415; 80048; 83880; 85007; 85027; 86703; 86704; 86706; 86708; 86803; 87340; 93701; 96372; G0463

== ENCOUNTER → 2017-02-27 | Outpatient (CLI) | payer MEDICARE, OTHER ==
[~2017-02-27] MED LIST changes: -CYANOCOBALAMIN (B-12) 1000 MCG/1 ML VIAL IM ONE; -CYANOCOBALAMIN (B-12) 1000 MCG/1 ML VIAL ONE
[2017-02-27 11:30] VITALS: BP 119/59
[2017-02-27 13:23] LABS: Potassium 4.5 mmol/L (3.5-5.1)
== END | disposition home or self-care (01) ==
LOC: CHF HDHVI 10:43
PROVIDERS: ATTEND Internal Medicine Cardiovascular Disease
DX: R94.4 Abnormal results of kidney function studies (principal); E87.6 Hypokalemia; R80.9 Proteinuria, unspecified
CPT/HCPCS: 36415; 82565; 84132; 84156; 84520; J1642

== ENCOUNTER → 2017-03-02 | Outpatient (CLI) | payer MEDICARE, OTHER ==
[~2017-03-02] MED LIST changes: +CYANOCOBALAMIN (B-12) 1000 MCG/1 ML VIAL IM ONE; +CYANOCOBALAMIN (B-12) 1000 MCG/1 ML VIAL ONE; -SILVER SULFADIAZINE 1 % TOPICAL CREAM 50GM TOP ONE
[2017-03-02 12:45] VITALS: BP 117/56
[2017-03-02 16:23] LABS: Basophils # (auto) 0 uL; Basophils % (auto) 0.6 % (0.0-2.0); CONDITION Y; DEFINITIVE SEE PRINTOUT; Eosinophils # (auto) 0.1 uL; Hematocrit 28.6 % (41.0-53.0); Hemoglobin 9.4 g/dL (13.5-17.5); Lymphocytes % (auto) 17.4 % (10.0-50.0); Mean Corpuscular Hemoglobin 28.9 pg (28.0-32.0); Mean Corpuscular Hgb Conc. 32.7 g/dL (32.0-36.0); Mean Corpuscular Volume 88.4 fL (80.0-100.0); Mean Platelet Volume 10.4 fL (7.4-10.4); Monocytes # (auto) 0.6 uL; Monocytes % (auto) 11.2 % (0.0-12.0); Neutrophils % (auto) 69.8 % (37.0-80.0); Platelet Count (auto) 280 10^3/uL (140-450); SUSPECT SEE PRINTOUT; White Blood Cell 5.8 10^3/uL (4.4-10.8)
[2017-03-02 16:30] LABS: Red Cell Distribution Width 23.8 % (11.6-16.0)
[2017-03-02 20:05] LABS: Anisocytosis Moderate; Burr Cells FEW; Platelet Estimate Adequate
[2017-03-02 20:06] LABS: Large Platelets FEW; Ovalocytes FEW; Tear Drop Cells FEW
== END | disposition home or self-care (01) ==
LOC: CHF HDHVI 11:38
PROVIDERS: ATTEND Internal Medicine Cardiovascular Disease
DX: I27.2 Other secondary pulmonary hypertension (principal); S81.009A Unspecified open wound, unspecified knee, initial encounter; E87.6 Hypokalemia; R94.4 Abnormal results of kidney function studies; D64.9 Anemia, unspecified; I10 Essential (primary) hypertension; E11.9 Type 2 diabetes mellitus without complications; X58.XXXA Exposure to other specified factors, initial encounter; Y93.89 Activity, other specified; Y92.89 Other specified places as the place of occurrence of the external cause; Y99.8 Other external cause status
CPT/HCPCS: 36415; 82565; 84132; 84520; 85025; 96372; G0463; J3420

== ENCOUNTER → 2017-03-06 | Outpatient (CLI) | payer MEDICARE, OTHER ==
[~2017-03-06] MED LIST changes: -CYANOCOBALAMIN (B-12) 1000 MCG/1 ML VIAL IM ONE; -CYANOCOBALAMIN (B-12) 1000 MCG/1 ML VIAL ONE
[2017-03-06 11:00] VITALS: BP 112/53
[2017-03-06 16:42] LABS: B-Type Natriuretic Peptide 1176.29 pg/mL (0-100)
[2017-03-06 16:57] LABS: Temperature: 23.3 C (20.0-25.0)
== END | disposition home or self-care (01) ==
LOC: CHF HDHVI 10:38
PROVIDERS: ATTEND Internal Medicine Cardiovascular Disease
DX: I50.9 Heart failure, unspecified (principal); E87.6 Hypokalemia; E11.9 Type 2 diabetes mellitus without complications; D64.9 Anemia, unspecified; R94.4 Abnormal results of kidney function studies
CPT/HCPCS: 36415; 82565; 83880; 84132; 84520; G0463; J1642

== ENCOUNTER → 2017-03-09 | Outpatient (CLI) | payer MEDICARE, OTHER ==
[2017-03-09 09:30] VITALS: BP 111/54
[2017-03-09 09:55] VITALS: BP 124/57
[2017-03-09 13:25] LABS: Potassium 4.9 mmol/L (3.5-5.1)
== END | disposition home or self-care (01) ==
LOC: CHF HDHVI 09:10
PROVIDERS: ATTEND Internal Medicine Cardiovascular Disease
DX: S81.801A Unspecified open wound, right lower leg, initial encounter (principal); I50.9 Heart failure, unspecified; E87.6 Hypokalemia; R94.4 Abnormal results of kidney function studies; E11.9 Type 2 diabetes mellitus without complications; I95.9 Hypotension, unspecified; Z95.1 Presence of aortocoronary bypass graft; X58.XXXA Exposure to other specified factors, initial encounter; Y93.89 Activity, other specified; Y92.89 Other specified places as the place of occurrence of the external cause; Y99.8 Other external cause status
CPT/HCPCS: 36415; 82565; 84132; 84520; 96374; G0463; J1642

== ENCOUNTER → 2017-03-13 | Outpatient (CLI) | payer MEDICARE, OTHER ==
[~2017-03-13] MED LIST changes: +CYANOCOBALAMIN (B-12) 1000 MCG/1 ML VIAL IM ONE; +CYANOCOBALAMIN (B-12) 1000 MCG/1 ML VIAL ONE
[2017-03-13 11:10] VITALS: BP_SYST 115; BP_SYST 116; BP_DIAS 50; BP_DIAS 51
[2017-03-13 12:02] LABS: Basophils # (auto) 0 uL; Basophils % (auto) 0.4 % (0.0-2.0); CONDITION Y; DEFINITIVE SEE PRINTOUT; Eosinophils # (auto) 0.1 uL; Hematocrit 27.9 % (41.0-53.0); Hemoglobin 9.2 g/dL (13.5-17.5); Lymphocytes # (auto) 0.9 uL; Lymphocytes % (auto) 14.5 % (10.0-50.0); Mean Corpuscular Hemoglobin 29.7 pg (28.0-32.0); Mean Corpuscular Volume 90.1 fL (80.0-100.0); Mean Platelet Volume 10.7 fL (7.4-10.4); Monocytes # (auto) 0.5 uL; Monocytes % (auto) 7.1 % (0.0-12.0); Platelet Count (auto) 271 10^3/uL (140-450); SUSPECT SEE PRINTOUT
[2017-03-13 12:19] LABS: BUN/Creatinine Ratio 36.3; Calcium 8.4 mg/dL (8.5-10.1); Magnesium 2.8 mg/dL (1.6-2.6); Potassium 4.8 mmol/L (3.5-5.1)
[2017-03-13 12:25] LABS: B-Type Natriuretic Peptide 1405.95 pg/mL (0-100)
[2017-03-13 12:28] LABS: Temperature: 23.1 C (20.0-25.0)
[2017-03-13 12:32] LABS: Red Cell Distribution Width 23.2 % (11.6-16.0)
[2017-03-13 12:33] LABS: White Blood Cell 7.1 10^3/uL (4.4-10.8)
[2017-03-13 12:34] LABS: Anisocytosis Moderate
[2017-03-13 12:35] LABS: Platelet Estimate Adequate
== END | disposition home or self-care (01) ==
LOC: CHF HDHVI 09:39
PROVIDERS: ATTEND Internal Medicine Cardiovascular Disease
DX: I50.9 Heart failure, unspecified (principal); I10 Essential (primary) hypertension; E83.42 Hypomagnesemia; D64.9 Anemia, unspecified; R53.83 Other fatigue
CPT/HCPCS: 36415; 80048; 83735; 83880; 85025; 96372; G0463; J1642; J3420

== ENCOUNTER → 2017-03-16 | Outpatient (CLI) | payer MEDICARE, OTHER ==
[~2017-03-16] MED LIST changes: +FUROSEMIDE 40 MG/4 ML VIAL IV ONE; +FUROSEMIDE 40 MG/4 ML VIAL ONE
[2017-03-16 10:40] VITALS: BP 109/62
[2017-03-16 16:16] VITALS: BP 116/65
[2017-03-16 17:05] LABS: Potassium 4.8 mmol/L (3.5-5.1)
== END | disposition home or self-care (01) ==
LOC: CHF HDHVI 10:35
PROVIDERS: ATTEND Internal Medicine Cardiovascular Disease
DX: E87.6 Hypokalemia (principal); R94.4 Abnormal results of kidney function studies
CPT/HCPCS: 36415; 82565; 84132; 84520; 96374; G0463; J1642; J1940; J3420

== ENCOUNTER → 2017-03-17 | Outpatient (CLI) | payer MEDICARE, OTHER ==
[~2017-03-17] MED LIST changes: -CYANOCOBALAMIN (B-12) 1000 MCG/1 ML VIAL IM ONE; -CYANOCOBALAMIN (B-12) 1000 MCG/1 ML VIAL ONE; -FUROSEMIDE 40 MG/4 ML VIAL IV ONE; -FUROSEMIDE 40 MG/4 ML VIAL ONE
[2017-03-17 11:40] VITALS: BP 114/49
[2017-03-17 12:15] VITALS: BP 110/49
== END | disposition home or self-care (01) ==
LOC: CHF HDHVI 11:39
PROVIDERS: ATTEND Internal Medicine Cardiovascular Disease
DX: I50.9 Heart failure, unspecified (principal); E11.9 Type 2 diabetes mellitus without complications; R53.83 Other fatigue; S90.822A Blister (nonthermal), left foot, initial encounter; X58.XXXA Exposure to other specified factors, initial encounter; Y93.89 Activity, other specified; Y92.89 Other specified places as the place of occurrence of the external cause; Y99.8 Other external cause status
CPT/HCPCS: G0463

== ENCOUNTER → 2017-03-20 | Outpatient (CLI) | payer MEDICARE, OTHER ==
[~2017-03-20] MED LIST changes: +CHL4PW GT; +CYANOCOBALAMIN (B-12) 1000 MCG/1 ML VIAL IM ONE; +CYANOCOBALAMIN (B-12) 1000 MCG/1 ML VIAL ONE; +OMEG100078 PO; +SIMV-13 OR; +VANC500I IV
[2017-03-20 12:45] VITALS: BP 106/51
== END | disposition home or self-care (01) ==
LOC: CHF HDHVI 11:24
PROVIDERS: ATTEND Internal Medicine Cardiovascular Disease
DX: I50.9 Heart failure, unspecified (principal); E11.9 Type 2 diabetes mellitus without complications; D64.9 Anemia, unspecified; I95.9 Hypotension, unspecified; Z95.1 Presence of aortocoronary bypass graft
CPT/HCPCS: 96372; 96374; G0463; J1642; J3420

== ENCOUNTER → 2017-03-21 | Outpatient (CLI) | payer MEDICARE, OTHER ==
[~2017-03-21] MED LIST changes: -CHL4PW GT; -CYANOCOBALAMIN (B-12) 1000 MCG/1 ML VIAL IM ONE; -CYANOCOBALAMIN (B-12) 1000 MCG/1 ML VIAL ONE; -OMEG100078 PO; -SIMV-13 OR; -VANC500I IV
[2017-03-21 11:00] VITALS: BP 110/48
[2017-03-21 12:50] VITALS: BP 107/55
== END | disposition home or self-care (01) ==
LOC: Rad HDHVI 11:07
PROVIDERS: ATTEND Internal Medicine Cardiovascular Disease
DX: I50.9 Heart failure, unspecified (principal); E11.621 Type 2 diabetes mellitus with foot ulcer; I83.028 Varicose veins of left lower extremity with ulcer other part of lower leg; L97.829 Non-pressure chronic ulcer of other part of left lower leg with unspecified severity; R60.9 Edema, unspecified
CPT/HCPCS: 93926; G0463

== ENCOUNTER → 2017-03-23 | Outpatient (CLI) | payer MEDICARE, OTHER ==
[~2017-03-23] MED LIST changes: +FUROSEMIDE 40 MG/4 ML VIAL IV ONE; +FUROSEMIDE 40 MG/4 ML VIAL ONE
[2017-03-23 10:50] VITALS: BP 118/53
[2017-03-23 12:25] VITALS: BP 120/54
[2017-03-23 16:38] LABS: Basophils # (auto) 0 uL; Basophils % (auto) 0.4 % (0.0-2.0); CONDITION Y; DEFINITIVE SEE PRINTOUT; Eosinophils # (auto) 0 uL; Eosinophils % (auto) 0.6 % (0.0-7.0); Hematocrit 27.4 % (41.0-53.0); Lymphocytes # (auto) 0.7 uL; Lymphocytes % (auto) 12.9 % (10.0-50.0); Mean Corpuscular Hemoglobin 30.5 pg (28.0-32.0); Mean Corpuscular Hgb Conc. 32.9 g/dL (32.0-36.0); Mean Corpuscular Volume 92.6 fL (80.0-100.0); Monocytes # (auto) 0.5 uL; Monocytes % (auto) 9.4 % (0.0-12.0); Neutrophils # (auto) 4.4 uL; Neutrophils % (auto) 76.7 % (37.0-80.0); Platelet Count (auto) 257 10^3/uL (140-450); SUSPECT SEE PRINTOUT; White Blood Cell 5.8 10^3/uL (4.4-10.8)
[2017-03-23 16:39] LABS: Red Cell Distribution Width 22.2 % (11.6-16.0)
[2017-03-23 16:41] LABS: BUN/Creatinine Ratio 35.4; Calcium 8.5 mg/dL (8.5-10.1); Potassium 4.7 mmol/L (3.5-5.1)
[2017-03-23 16:49] LABS: B-Type Natriuretic Peptide 1292.68 pg/mL (0-100)
[2017-03-23 17:10] LABS: Temperature: 24.6 C (20.0-25.0)
[2017-03-23 17:55] LABS: Anisocytosis Moderate; Burr Cells MODERATE; Giant Platelets Few; Platelet Estimate Adequate
== END | disposition home or self-care (01) ==
LOC: CHF HDHVI 10:53
PROVIDERS: ATTEND Internal Medicine Cardiovascular Disease
DX: I11.0 Hypertensive heart disease with heart failure (principal); I50.9 Heart failure, unspecified; D64.9 Anemia, unspecified
CPT/HCPCS: 36415; 80048; 83880; 85025; G0463; J1642; J1940

== ENCOUNTER → 2017-03-27 | Outpatient (CLI) | payer MEDICARE, OTHER ==
[~2017-03-27] MED LIST changes: +CYANOCOBALAMIN (B-12) 1000 MCG/1 ML VIAL IM ONE; +CYANOCOBALAMIN (B-12) 1000 MCG/1 ML VIAL ONE; -FUROSEMIDE 40 MG/4 ML VIAL IV ONE; -FUROSEMIDE 40 MG/4 ML VIAL ONE
[2017-03-27 12:41] VITALS: BP 142/52
== END | disposition home or self-care (01) ==
LOC: CHF HDHVI 11:07
PROVIDERS: ATTEND Internal Medicine Cardiovascular Disease
DX: I50.9 Heart failure, unspecified (principal); E11.621 Type 2 diabetes mellitus with foot ulcer; I83.018 Varicose veins of right lower extremity with ulcer other part of lower leg; L97.819 Non-pressure chronic ulcer of other part of right lower leg with unspecified severity; D64.9 Anemia, unspecified
CPT/HCPCS: 96372; G0463; J1642; J3420

== ENCOUNTER → 2017-03-30 | Outpatient (CLI) | payer MEDICARE, OTHER ==
[~2017-03-30] MED LIST changes: -CYANOCOBALAMIN (B-12) 1000 MCG/1 ML VIAL IM ONE; -CYANOCOBALAMIN (B-12) 1000 MCG/1 ML VIAL ONE
[2017-03-30 10:35] VITALS: BP 121/56
[2017-03-30 11:40] VITALS: BP 127/69
== END | disposition home or self-care (01) ==
LOC: CHF HDHVI 10:38
PROVIDERS: ATTEND Internal Medicine Cardiovascular Disease
DX: I50.9 Heart failure, unspecified (principal); E11.9 Type 2 diabetes mellitus without complications; D64.9 Anemia, unspecified; I95.9 Hypotension, unspecified
CPT/HCPCS: G0463

== ENCOUNTER → 2017-04-03 | Outpatient (CLI) | payer MEDICARE, OTHER ==
[2017-04-03 12:15] VITALS: BP 124/54
[2017-04-03 16:42] LABS: Basophils # (auto) 0 uL; Basophils % (auto) 0.6 % (0.0-2.0); CONDITION Y; DEFINITIVE SEE PRINTOUT; Eosinophils # (auto) 0 uL; Eosinophils % (auto) 0.6 % (0.0-7.0); Hematocrit 27.5 % (41.0-53.0); Hemoglobin 8.9 g/dL (13.5-17.5); Lymphocytes # (auto) 0.6 uL; Lymphocytes % (auto) 11.9 % (10.0-50.0); Mean Corpuscular Hemoglobin 30.3 pg (28.0-32.0); Mean Corpuscular Hgb Conc. 32.4 g/dL (32.0-36.0); Mean Corpuscular Volume 93.4 fL (80.0-100.0); Mean Platelet Volume 11.5 fL (7.4-10.4); Monocytes # (auto) 0.4 uL; Monocytes % (auto) 8.1 % (0.0-12.0); Neutrophils # (auto) 4.1 uL; Neutrophils % (auto) 78.8 % (37.0-80.0); Platelet Count (auto) 259 10^3/uL (140-450); Red Cell Distribution Width 19.6 % (11.6-16.0); SUSPECT SEE PRINTOUT; White Blood Cell 5.2 10^3/uL (4.4-10.8)
[2017-04-03 16:57] LABS: Potassium 5.1 mmol/L (3.5-5.1)
[2017-04-03 17:01] LABS: BUN/Creatinine Ratio 25.8
[2017-04-03 17:14] LABS: Temperature: 22.7 C (20.0-25.0)
== END | disposition home or self-care (01) ==
LOC: CHF HDHVI 11:32
PROVIDERS: ATTEND Internal Medicine Cardiovascular Disease
DX: I11.0 Hypertensive heart disease with heart failure (principal); I50.9 Heart failure, unspecified; D64.9 Anemia, unspecified; R89.9 Unspecified abnormal finding in specimens from other organs, systems and tissues
CPT/HCPCS: 36415; 80048; 83880; 85025; 87205; J1642

== ENCOUNTER → 2017-04-06 | Outpatient (CLI) | payer MEDICARE, OTHER ==
[2017-04-06 10:00] VITALS: BP 129/55
== END | disposition home or self-care (01) ==
LOC: CHF HDHVI 10:06
PROVIDERS: ATTEND Internal Medicine Cardiovascular Disease
DX: I83.009 Varicose veins of unspecified lower extremity with ulcer of unspecified site (principal)
CPT/HCPCS: G0463

== ENCOUNTER → 2017-04-10 | Outpatient (CLI) | payer MEDICARE, OTHER ==
[~2017-04-10] MED LIST changes: +CYANOCOBALAMIN (B-12) 1000 MCG/1 ML VIAL IM ONE; +CYANOCOBALAMIN (B-12) 1000 MCG/1 ML VIAL ONE; +EPOETIN ALFA 10,000 UNIT/1 ML VIAL ONE; +EPOETIN ALFA 10,000 UNIT/1 ML VIAL SC ONE
[2017-04-10 10:40] VITALS: BP 124/56
[2017-04-10 12:30] VITALS: BP 124/56
== END | disposition home or self-care (01) ==
LOC: CHF HDHVI 11:06
PROVIDERS: ATTEND Internal Medicine Cardiovascular Disease
DX: I50.9 Heart failure, unspecified (principal); E11.22 Type 2 diabetes mellitus with diabetic chronic kidney disease; N18.9 Chronic kidney disease, unspecified; I25.5 Ischemic cardiomyopathy; Z95.1 Presence of aortocoronary bypass graft; E87.70 Fluid overload, unspecified
CPT/HCPCS: 96372; G0463; J0885; J1642; J3420

== ENCOUNTER → 2017-04-12 | Outpatient (CLI) | payer MEDICARE, OTHER ==
[~2017-04-12] VITALS: Ht 33 cm; Wt 0.5 kg
[~2017-04-12] MED LIST changes: -CYANOCOBALAMIN (B-12) 1000 MCG/1 ML VIAL IM ONE; -CYANOCOBALAMIN (B-12) 1000 MCG/1 ML VIAL ONE; -EPOETIN ALFA 10,000 UNIT/1 ML VIAL ONE; -EPOETIN ALFA 10,000 UNIT/1 ML VIAL SC ONE; +FUROSEMIDE 20 MG/2 ML VIAL IV SCH; +FUROSEMIDE 20 MG/2 ML VIAL ONE; +FUROSEMIDE 40 MG/4 ML VIAL ONE; +METOLAZONE 5 MG TAB ONE; +METOLAZONE 5 MG TAB PO ONE
[2017-04-12 13:55] VITALS: BP 132/85
== END | disposition home or self-care (01) ==
LOC: CHF HDHVI 12:14
PROVIDERS: ATTEND Internal Medicine Cardiovascular Disease
DX: I83.008 Varicose veins of unspecified lower extremity with ulcer other part of lower leg (principal); I25.10 Atherosclerotic heart disease of native coronary artery without angina pectoris; E11.9 Type 2 diabetes mellitus without complications; I50.9 Heart failure, unspecified
CPT/HCPCS: 96374; G0463; J1642; J1940

== ENCOUNTER → 2017-04-13 | Outpatient (CLI) | payer MEDICARE, OTHER ==
[~2017-04-13] VITALS: Ht 165.1 cm; Wt 93.0 kg
[2017-04-13] VITALS (9 sets, daily range): BP systolic 114–145; BP diastolic 51–62
[~2017-04-13] MED LIST changes: +DOBUTamine 1000MCG/ML 250 ML IV ONE; -FUROSEMIDE 20 MG/2 ML VIAL IV SCH; -FUROSEMIDE 20 MG/2 ML VIAL ONE; -FUROSEMIDE 40 MG/4 ML VIAL ONE; +FUROSEMIDE INJECTION 10 ML ONE; +FUROSEMIDE INJECTION 100 MG in SODIUM CHL 0.9% 100 ML IV SCH; -METOLAZONE 5 MG TAB ONE; -METOLAZONE 5 MG TAB PO ONE; +SACU1TAB7 PO; +SUCR1TAB38 OR; +[UNRECOGNIZED DRUG - CODE] PO
[2017-04-13 12:23] LABS: Albumin 2.2 g/dL (3.4-5.0); Basophils # (auto) 0 uL; Basophils % (auto) 0.4 % (0.0-2.0); CONDITION Y; Calcium 8.4 mg/dL (8.5-10.1); Eosinophils # (auto) 0 uL; Eosinophils % (auto) 0.5 % (0.0-7.0); Hematocrit 25.5 % (41.0-53.0); Hemoglobin 8.6 g/dL (13.5-17.5); Lymphocytes % (auto) 15.7 % (10.0-50.0); Mean Corpuscular Hgb Conc. 33.6 g/dL (32.0-36.0); Mean Platelet Volume 10.6 fL (7.4-10.4); Monocytes # (auto) 0.5 uL; Monocytes % (auto) 7.8 % (0.0-12.0); Neutrophils # (auto) 4.6 uL; Neutrophils % (auto) 75.6 % (37.0-80.0); Platelet Count (auto) 258 10^3/uL (140-450); Potassium 4.2 mmol/L (3.5-5.1); SUSPECT SEE PRINTOUT; White Blood Cell 6.1 10^3/uL (4.4-10.8)
[2017-04-13 12:25] LABS: BUN/Creatinine Ratio 24.6
[2017-04-13 12:27] LABS: B-Type Natriuretic Peptide 1450.31 pg/mL (0-100); Bilirubin, Total 1.6 mg/dL (0.2-1.0); Total Protein 6.3 g/dL (6.4-8.2)
[2017-04-13 12:29] LABS: Temperature: 24.1 C (20.0-25.0)
[2017-04-13 13:04] LABS: Bilirubin, Direct 1.4 mg/dL (0-0.2)
== END | disposition home or self-care (01) ==
LOC: CHF HDHVI 10:51
PROVIDERS: ATTEND Internal Medicine Cardiovascular Disease
DX: I10 Essential (primary) hypertension (principal); K74.1 Hepatic sclerosis; E11.9 Type 2 diabetes mellitus without complications; D64.9 Anemia, unspecified; I50.9 Heart failure, unspecified
CPT/HCPCS: 36415; 80048; 80076; 83036; 83880; 85025; 96365; 96366; 96367; G0463; J1250; J1642; J1940

== ENCOUNTER → 2017-04-14 | Outpatient (CLI) | payer MEDICARE, OTHER ==
[~2017-04-14] MED LIST changes: -DOBUTamine 1000MCG/ML 250 ML IV ONE; +FUROSEMIDE 20 MG/2 ML VIAL IV ONE; +FUROSEMIDE 20 MG/2 ML VIAL ONE; +FUROSEMIDE 40 MG/4 ML VIAL ONE; -FUROSEMIDE INJECTION 10 ML ONE; -FUROSEMIDE INJECTION 100 MG in SODIUM CHL 0.9% 100 ML IV SCH; +METOLAZONE 5 MG TAB ONE; +METOLAZONE 5 MG TAB PO ONE; -SACU1TAB7 PO; -SUCR1TAB38 OR; -[UNRECOGNIZED DRUG - CODE] PO
[2017-04-14 11:00] VITALS: BP 124/56
[2017-04-14 12:40] VITALS: BP 127/58
== END | disposition home or self-care (01) ==
LOC: CHF HDHVI 13:23
PROVIDERS: ATTEND Internal Medicine Cardiovascular Disease
DX: I73.9 Peripheral vascular disease, unspecified (principal); I25.10 Atherosclerotic heart disease of native coronary artery without angina pectoris; L97.909 Non-pressure chronic ulcer of unspecified part of unspecified lower leg with unspecified severity; E11.9 Type 2 diabetes mellitus without complications; E87.70 Fluid overload, unspecified
CPT/HCPCS: 96374; G0463; J1642; J1940

== ENCOUNTER → 2017-04-17 | Outpatient (CLI) | payer MEDICARE, OTHER ==
[~2017-04-17] MED LIST changes: +CYANOCOBALAMIN (B-12) 1000 MCG/1 ML VIAL IM ONE; +CYANOCOBALAMIN (B-12) 1000 MCG/1 ML VIAL ONE; -FUROSEMIDE 20 MG/2 ML VIAL IV ONE; -FUROSEMIDE 20 MG/2 ML VIAL ONE; -FUROSEMIDE 40 MG/4 ML VIAL ONE; -METOLAZONE 5 MG TAB ONE; -METOLAZONE 5 MG TAB PO ONE
[2017-04-17 12:50] VITALS: BP 110/49
[2017-04-17 16:57] LABS: Basophils # (auto) 0 uL; Basophils % (auto) 0.3 % (0.0-2.0); CONDITION Y; DEFINITIVE SEE PRINTOUT; Eosinophils # (auto) 0.1 uL; Eosinophils % (auto) 0.9 % (0.0-7.0); Hematocrit 24.9 % (41.0-53.0); Hemoglobin 8.1 g/dL (13.5-17.5); Lymphocytes # (auto) 1.2 uL; Lymphocytes % (auto) 16.1 % (10.0-50.0); Mean Corpuscular Hemoglobin 30.4 pg (28.0-32.0); Mean Corpuscular Hgb Conc. 32.4 g/dL (32.0-36.0); Mean Corpuscular Volume 93.6 fL (80.0-100.0); Mean Platelet Volume 10.6 fL (7.4-10.4); Monocytes # (auto) 0.9 uL; Monocytes % (auto) 12.5 % (0.0-12.0); Neutrophils % (auto) 70.2 % (37.0-80.0); Platelet Count (auto) 262 10^3/uL (140-450); Red Cell Distribution Width 17.1 % (11.6-16.0); SUSPECT SEE PRINTOUT; White Blood Cell 7.1 10^3/uL (4.4-10.8)
[2017-04-17 17:19] LABS: B-Type Natriuretic Peptide 1700.28 pg/mL (0-100)
[2017-04-17 17:20] LABS: Magnesium 2.7 mg/dL (1.6-2.6); Potassium 3.4 mmol/L (3.5-5.1)
== END | disposition home or self-care (01) ==
LOC: CHF HDHVI 13:08
PROVIDERS: ATTEND Internal Medicine Cardiovascular Disease
DX: E87.5 Hyperkalemia (principal); R94.4 Abnormal results of kidney function studies; I50.9 Heart failure, unspecified; E83.42 Hypomagnesemia; E11.21 Type 2 diabetes mellitus with diabetic nephropathy; E11.51 Type 2 diabetes mellitus with diabetic peripheral angiopathy without gangrene; D64.9 Anemia, unspecified; Z95.1 Presence of aortocoronary bypass graft; Z95.810 Presence of automatic (implantable) cardiac defibrillator; Z79.82 Long term (current) use of aspirin; Z79.4 Long term (current) use of insulin; Z79.899 Other long term (current) drug therapy
CPT/HCPCS: 36415; 82565; 83735; 83880; 84132; 84520; 85025; 96372; G0463; J1642; J3420

== ENCOUNTER → 2017-04-19 | Day surgery (SDC) | payer MEDICARE, OTHER ==
[2017-04-19] VITALS (8 sets, daily range): BP systolic 108–121; BP diastolic 52–90
[~2017-04-19] MED LIST changes: -CYANOCOBALAMIN (B-12) 1000 MCG/1 ML VIAL IM ONE; -CYANOCOBALAMIN (B-12) 1000 MCG/1 ML VIAL ONE
== END | disposition home or self-care (01) ==
LOC: CATH 07:20
PROVIDERS: ATTEND Internal Medicine Cardiovascular Disease
DX: D64.9 Anemia, unspecified (principal); I20.8 Other forms of angina pectoris; I50.9 Heart failure, unspecified; Z95.1 Presence of aortocoronary bypass graft; F41.9 Anxiety disorder, unspecified
CPT/HCPCS: 36430; 86850; 86900; 86901; 86920

== ENCOUNTER → 2017-04-19 | Outpatient (CLI) | payer MEDICARE, OTHER ==
[2017-04-19 13:30] VITALS: BP 115/56
== END | disposition home or self-care (01) ==
LOC: CHF HDHVI 13:17
PROVIDERS: ATTEND Internal Medicine Cardiovascular Disease
DX: I50.9 Heart failure, unspecified (principal); I25.10 Atherosclerotic heart disease of native coronary artery without angina pectoris; E11.9 Type 2 diabetes mellitus without complications; I95.9 Hypotension, unspecified; R60.9 Edema, unspecified
CPT/HCPCS: G0463

== ENCOUNTER → 2017-04-24 | Outpatient (CLI) | payer MEDICARE, OTHER ==
[2017-04-24 11:00] VITALS: BP 105/55
[2017-04-24 12:45] VITALS: BP 105/55
[2017-04-24 16:44] LABS: Basophils # (auto) 0 uL; Basophils % (auto) 0.2 % (0.0-2.0); CONDITION Y; DEFINITIVE SEE PRINTOUT; Eosinophils # (auto) 0 uL; Eosinophils % (auto) 0.6 % (0.0-7.0); Hemoglobin 7.6 g/dL (13.5-17.5); Lymphocytes # (auto) 0.8 uL; Lymphocytes % (auto) 11.6 % (10.0-50.0); Mean Corpuscular Hemoglobin 30.5 pg (28.0-32.0); Mean Corpuscular Hgb Conc. 33.1 g/dL (32.0-36.0); Mean Corpuscular Volume 92.1 fL (80.0-100.0); Mean Platelet Volume 10.7 fL (7.4-10.4); Monocytes # (auto) 0.6 uL; Monocytes % (auto) 9.4 % (0.0-12.0); Neutrophils # (auto) 5.3 uL; Neutrophils % (auto) 78.2 % (37.0-80.0); Platelet Count (auto) 299 10^3/uL (140-450); Red Cell Distribution Width 17.1 % (11.6-16.0); SUSPECT SEE PRINTOUT; White Blood Cell 6.8 10^3/uL (4.4-10.8)
[2017-04-24 17:05] LABS: B-Type Natriuretic Peptide 1418.24 pg/mL (0-100)
[2017-04-24 17:17] LABS: Temperature: 22.7 C (20.0-25.0)
[2017-04-24 17:29] LABS: BUN/Creatinine Ratio 30.6; Calcium 8.2 mg/dL (8.5-10.1); Potassium 5.2 mmol/L (3.5-5.1)
== END | disposition home or self-care (01) ==
LOC: CHF HDHVI 11:09
PROVIDERS: ATTEND Internal Medicine Cardiovascular Disease
DX: I73.9 Peripheral vascular disease, unspecified (principal); I11.0 Hypertensive heart disease with heart failure; I50.9 Heart failure, unspecified; I83.009 Varicose veins of unspecified lower extremity with ulcer of unspecified site; L97.909 Non-pressure chronic ulcer of unspecified part of unspecified lower leg with unspecified severity; E11.9 Type 2 diabetes mellitus without complications; D64.9 Anemia, unspecified; T14.8 Other injury of unspecified body region; X58.XXXA Exposure to other specified factors, initial encounter; Y93.89 Activity, other specified; Y92.89 Other specified places as the place of occurrence of the external cause; Y99.8 Other external cause status; Z79.899 Other long term (current) drug therapy
CPT/HCPCS: 36415; 80048; 82565; 83880; 85025; G0463; J1642

== ENCOUNTER → 2017-05-05 | Outpatient (CLI) | payer MEDICARE, OTHER ==
[2017-05-05 10:45] VITALS: BP 117/52
[2017-05-05 11:45] VITALS: BP 121/56
== END | disposition home or self-care (01) ==
LOC: CHF HDHVI 10:44
PROVIDERS: ATTEND Internal Medicine Cardiovascular Disease
DX: I50.9 Heart failure, unspecified (principal); I25.5 Ischemic cardiomyopathy; S81.801A Unspecified open wound, right lower leg, initial encounter; S81.802A Unspecified open wound, left lower leg, initial encounter; E11.9 Type 2 diabetes mellitus without complications; R18.8 Other ascites; X58.XXXA Exposure to other specified factors, initial encounter; Y93.89 Activity, other specified; Y92.89 Other specified places as the place of occurrence of the external cause; Y99.8 Other external cause status
CPT/HCPCS: G0463

== ENCOUNTER → 2017-05-11 | Outpatient (CLI) | payer MEDICARE, OTHER ==
[2017-05-11 12:30] VITALS: BP_SYST 116; BP_SYST 120; BP_DIAS 55; BP_DIAS 56
[2017-05-11 16:34] LABS: Basophils # (auto) 0 uL; Basophils % (auto) 0.5 % (0.0-2.0); CONDITION Y; Eosinophils # (auto) 0 uL; Eosinophils % (auto) 0.5 % (0.0-7.0); Hemoglobin 9.5 g/dL (13.5-17.5); Lymphocytes # (auto) 0.8 uL; Lymphocytes % (auto) 10.2 % (10.0-50.0); Mean Corpuscular Hemoglobin 30.3 pg (28.0-32.0); Mean Corpuscular Hgb Conc. 32.8 g/dL (32.0-36.0); Mean Corpuscular Volume 92.3 fL (80.0-100.0); Mean Platelet Volume 9.6 fL (7.4-10.4); Monocytes # (auto) 0.5 uL; Monocytes % (auto) 6.4 % (0.0-12.0); Neutrophils # (auto) 6.2 uL; Neutrophils % (auto) 82.4 % (37.0-80.0); Platelet Count (auto) 396 10^3/uL (140-450); Red Cell Distribution Width 16.1 % (11.6-16.0); SUSPECT SEE PRINTOUT; White Blood Cell 7.6 10^3/uL (4.4-10.8)
[2017-05-11 16:41] LABS: BUN/Creatinine Ratio 19.6; Calcium 8.1 mg/dL (8.5-10.1); Potassium 4.3 mmol/L (3.5-5.1)
[2017-05-11 16:43] LABS: Bilirubin, Total 1.5 mg/dL (0.2-1.0); Total Protein 6.5 g/dL (6.4-8.2)
== END | disposition home or self-care (01) ==
LOC: CHF HDHVI 11:59
PROVIDERS: ATTEND Internal Medicine Cardiovascular Disease
DX: I50.9 Heart failure, unspecified (principal); D64.9 Anemia, unspecified
CPT/HCPCS: 36415; 80053; 85025; G0463

== ENCOUNTER → 2017-05-16 | Outpatient (CLI) | payer MEDICARE, OTHER ==
[~2017-05-16] VITALS: Ht 30.5 cm; Wt 0.5 kg
[2017-05-16 11:30] VITALS: BP 120/55
[2017-05-16 11:51] VITALS: BP 120/53
[2017-05-16 16:53] LABS: Potassium 3.9 mmol/L (3.5-5.1)
== END | disposition home or self-care (01) ==
LOC: CHF HDHVI 11:24
PROVIDERS: ATTEND Internal Medicine Cardiovascular Disease
DX: R94.4 Abnormal results of kidney function studies (principal); E87.6 Hypokalemia; I50.9 Heart failure, unspecified; Z95.1 Presence of aortocoronary bypass graft
CPT/HCPCS: 36415; 82565; 84132; 84520; G0463; J1642

== ENCOUNTER → 2017-05-17 | Outpatient (CLI) | payer MEDICARE, OTHER ==
[2017-05-17 09:45] VITALS: BP 125/55
[2017-05-17 10:55] VITALS: BP 120/58
== END | disposition home or self-care (01) ==
LOC: CHF HDHVI 09:53
PROVIDERS: ATTEND Internal Medicine Cardiovascular Disease
DX: I50.9 Heart failure, unspecified (principal)
CPT/HCPCS: G0463

== ENCOUNTER → 2017-05-22 | Outpatient (CLI) | payer MEDICARE, OTHER ==
[~2017-05-22] MED LIST changes: +HEPARIN Sod PEDiatric flush 10 UNITS/ML 1ML VIAL IV ONE
[2017-05-22 10:30] VITALS: BP 111/51
[2017-05-22 11:40] VITALS: BP 131/55
== END | disposition home or self-care (01) ==
LOC: CHF HDHVI 10:36
PROVIDERS: ATTEND Internal Medicine Cardiovascular Disease
DX: I50.9 Heart failure, unspecified (principal); E87.70 Fluid overload, unspecified; E11.621 Type 2 diabetes mellitus with foot ulcer; L97.409 Non-pressure chronic ulcer of unspecified heel and midfoot with unspecified severity
CPT/HCPCS: G0463; J1642

== ENCOUNTER → 2017-05-26 | Outpatient (CLI) | payer MEDICARE, OTHER ==
[~2017-05-26] MED LIST changes: -HEPARIN Sod PEDiatric flush 10 UNITS/ML 1ML VIAL IV ONE; +IOHEXOL 350 MG/ML 100ML IJ ONE; +SACU1TAB7 PO; +SUCR1TAB38 OR; +[UNRECOGNIZED DRUG - CODE] PO
[2017-05-26 08:55] VITALS: BP 124/56
[2017-05-26 11:35] VITALS: BP 124/56
[2017-05-26 11:45] VITALS: BP 138/62
[2017-05-26 12:19] LABS: Basophils # (auto) 0 uL; Basophils % (auto) 0.5 % (0.0-2.0); CONDITION Y; Eosinophils # (auto) 0 uL; Eosinophils % (auto) 0.6 % (0.0-7.0); Hematocrit 30.5 % (41.0-53.0); Hemoglobin 10.1 g/dL (13.5-17.5); Lymphocytes # (auto) 0.9 uL; Lymphocytes % (auto) 12.3 % (10.0-50.0); Mean Corpuscular Hemoglobin 30.4 pg (28.0-32.0); Mean Corpuscular Volume 92.2 fL (80.0-100.0); Mean Platelet Volume 10.3 fL (6.9-10.8); Monocytes # (auto) 0.7 uL; Monocytes % (auto) 9.2 % (0.0-12.0); Neutrophils # (auto) 5.5 uL; Neutrophils % (auto) 77.4 % (37.0-80.0); Platelet Count (auto) 371 10^3/uL (140-450); Red Cell Distribution Width 17.5 % (11.8-14.3); SUSPECT SEE PRINTOUT; White Blood Cell 7.1 10^3/uL (4.4-10.8)
[2017-05-26 12:54] LABS: Albumin 2.1 g/dL (3.4-5.0); BUN/Creatinine Ratio 20.2; Bilirubin, Direct 1.2 mg/dL (0-0.2); Bilirubin, Total 1.4 mg/dL (0.2-1.0); Calcium 8.3 mg/dL (8.5-10.1); Potassium 4.2 mmol/L (3.5-5.1); Total Protein 6.9 g/dL (6.4-8.2)
[2017-05-26 12:56] LABS: B-Type Natriuretic Peptide 3479.34 pg/mL (0-100)
[2017-05-26 13:20] LABS: Temperature: 22.3 C (20.0-25.0)
== END | disposition home or self-care (01) ==
LOC: Rad HDHVI 08:40
PROVIDERS: ATTEND Internal Medicine Cardiovascular Disease
DX: I50.9 Heart failure, unspecified (principal); K74.1 Hepatic sclerosis; D64.9 Anemia, unspecified; B19.20 Unspecified viral hepatitis C without hepatic coma
CPT/HCPCS: 36415; 74178; 80048; 80076; 82565; 83880; 85025; 96374; G0463; Q9967

== ENCOUNTER → 2017-05-29 | Outpatient (CLI) | payer MEDICARE, OTHER ==
[~2017-05-29] MED LIST changes: +ALBUMIN 25% 100 ML IV ONE; +FUROSEMIDE 40 MG/4 ML VIAL IV ONE; +FUROSEMIDE 40 MG/4 ML VIAL ONE; -IOHEXOL 350 MG/ML 100ML IJ ONE; +POTASSIUM CHL 20 Meq TABLET PO ONE
[2017-05-29 12:20] VITALS: BP_SYST 122; BP_SYST 126; BP_DIAS 57; BP_DIAS 62
== END | disposition home or self-care (01) ==
LOC: CHF HDHVI 09:34
PROVIDERS: ATTEND Internal Medicine Cardiovascular Disease
DX: I50.9 Heart failure, unspecified (principal); I25.10 Atherosclerotic heart disease of native coronary artery without angina pectoris; E11.9 Type 2 diabetes mellitus without complications; K74.60 Unspecified cirrhosis of liver; I83.009 Varicose veins of unspecified lower extremity with ulcer of unspecified site; L97.919 Non-pressure chronic ulcer of unspecified part of right lower leg with unspecified severity; L97.929 Non-pressure chronic ulcer of unspecified part of left lower leg with unspecified severity
CPT/HCPCS: 96365; 96375; G0463; J1642; J1940

== ENCOUNTER 2017-06-02 11:29 | Inpatient (IN) | payer MEDICARE, OTHER ==
[~2017-06-02] VITALS: Ht 177.8 cm; Wt 90.2 kg
[~2017-06-02 11:29] MED LIST changes: -SACU1TAB7 PO; -SUCR1TAB38 OR; -[UNRECOGNIZED DRUG - CODE] PO
[2017-06-02] MEDS: InsuLIN REG 1unit/0.01ml Soln (100units/ml) SC SCH ×3 (12:00→21:57)
[2017-06-02] MEDS: ACCU-CHEK COMFORT CURVE STRIP VI SCH ×3 (12:00→21:57)
[2017-06-02] MEDS ORDERED: HYDROmorphone HCL 2 MG/ML VL IV PRN (12:15)
[2017-06-02] MEDS ORDERED: DEXTROSE (50%) 50ML SYRG IV PRN (12:15)
[2017-06-02] MEDS ORDERED: NITROGLYCERIN 0.4 MG SL TAB SL PRN (12:15)
[2017-06-02] MEDS ORDERED: DOBUTamine 1000MCG/ML 250 ML IV SCH (12:15)
[2017-06-02] MEDS ORDERED: MORPHINE SULF INJ 2 MG/ML SYRINGE 1ML IV PRN (12:15)
[2017-06-02 12:19] VITALS: BP 125/62
[2017-06-02 14:00] VITALS: BP 123/60
[2017-06-02] MEDS ORDERED: amLODIPine BESYLATE 5 MG TAB PO ONE (14:15)
[2017-06-02] MEDS: DOBUTamine 1000MCG/ML 250 ML IV SCH ×2 (14:25→23:07)
[2017-06-02] MEDS ORDERED: SUCR1TAB38 OR (14:33)
[2017-06-02] MEDS ORDERED: SACU1TAB7 PO (14:33)
[2017-06-02] MEDS ORDERED: [UNRECOGNIZED DRUG - CODE] PO (14:33)
[2017-06-02 15:55] LABS: Basophils # (auto) 0 uL; Basophils % (auto) 0.5 % (0.0-2.0); Eosinophils # (auto) 0 uL; Eosinophils % (auto) 0.6 % (0.0-7.0); Hematocrit 29.8 % (41.0-53.0); Hemoglobin 9.9 g/dL (13.5-17.5); Lymphocytes # (auto) 0.7 uL; Lymphocytes % (auto) 12.5 % (10.0-50.0); Mean Corpuscular Hemoglobin 31.1 pg (28.0-32.0); Mean Corpuscular Hgb Conc. 33.3 g/dL (32.0-36.0); Mean Corpuscular Volume 93.3 fL (80.0-100.0); Mean Platelet Volume 9.5 fL (6.9-10.8); Monocytes # (auto) 0.7 uL; Monocytes % (auto) 11.1 % (0.0-12.0); Neutrophils # (auto) 4.4 uL; Neutrophils % (auto) 75.3 % (37.0-80.0); Platelet Count (auto) 293 10^3/uL (140-450); Red Cell Distribution Width 17.5 % (11.8-14.3); White Blood Cell 5.9 10^3/uL (4.4-10.8)
[2017-06-02 16:00] LABS: INR 1.08 (0.9-1.15); Prothrombin Time 11.8 sec (9.37-12.3)
[2017-06-02 16:54] VITALS: BP 134/65
[2017-06-02] MEDS: CARVEDILOL 12.5 MG TAB PO SCH (21:57)
[2017-06-02 22:00] VITALS: BP 122/62
[2017-06-03 05:00] VITALS: BP 138/60
[2017-06-03] MEDS: InsuLIN REG 1unit/0.01ml Soln (100units/ml) SC SCH ×4 (06:04→22:30)
[2017-06-03] MEDS: ACCU-CHEK COMFORT CURVE STRIP VI SCH ×4 (06:04→22:00)
[2017-06-03] MEDS: DOBUTamine 1000MCG/ML 250 ML IV SCH ×2 (06:36→16:56)
[2017-06-03 07:28] VITALS: BP 136/64
[2017-06-03] MEDS: amLODIPine BESYLATE 5 MG TAB PO SCH ×2 (10:00→10:09)
[2017-06-03] MEDS: LISINOPRIL 20 MG TAB PO SCH ×2 (10:00→10:11)
[2017-06-03] MEDS: POTASSIUM CHL 20 Meq TABLET PO SCH (10:10)
[2017-06-03] MEDS: CARVEDILOL 12.5 MG TAB PO SCH (10:10)
[2017-06-03] MEDS: FUROSEMIDE 20 MG TAB PO SCH (10:10)
[2017-06-03 11:00] VITALS: BP 140/70
[2017-06-03 16:00] VITALS: BP 138/69
[2017-06-03] MEDS: ASCORBIC ACID 500 MG TAB PO SCH ×2 (17:18→22:37)
[2017-06-03] MEDS: MULTIPLE VITAMINS W/ MINERALS TAB PO SCH (17:18)
[2017-06-03 22:00] VITALS: BP 143/67
[2017-06-03] MEDS: ENTRESTO 49/51MG PO SCH (22:00)
[2017-06-03] MEDS: CARVEDILOL 3.125 MG TAB PO SCH (22:38)
[2017-06-04] MEDS: DOBUTamine 1000MCG/ML 250 ML IV SCH ×4 (00:56→20:35)
[2017-06-04 05:05] VITALS: BP 123/59
[2017-06-04] MEDS: ACCU-CHEK COMFORT CURVE STRIP VI SCH ×4 (06:21→21:11)
[2017-06-04] MEDS: InsuLIN REG 1unit/0.01ml Soln (100units/ml) SC SCH ×4 (06:24→22:11)
[2017-06-04 08:53] VITALS: BP 142/65
[2017-06-04] MEDS: POTASSIUM CHL 20 Meq TABLET PO SCH (09:38)
[2017-06-04] MEDS: MULTIPLE VITAMINS W/ MINERALS TAB PO SCH (09:38)
[2017-06-04] MEDS: ASCORBIC ACID 500 MG TAB PO SCH ×2 (09:38→21:11)
[2017-06-04] MEDS: FUROSEMIDE 20 MG TAB PO SCH (09:38)
[2017-06-04] MEDS: CARVEDILOL 3.125 MG TAB PO SCH ×2 (09:39→21:10)
[2017-06-04] MEDS: amLODIPine BESYLATE 5 MG TAB PO SCH (09:42)
[2017-06-04] MEDS: ENTRESTO 49/51MG PO SCH ×2 (11:54→21:10)
[2017-06-04 15:18] LABS: Body Fluid Polymorphonuclear 18 %
[2017-06-04 16:00] VITALS: BP 127/61
[2017-06-04 22:00] VITALS: BP 131/62
[2017-06-05] VITALS (7 sets, daily range): BP systolic 113–122; BP diastolic 53–64
[2017-06-05] MEDS: InsuLIN REG 1unit/0.01ml Soln (100units/ml) SC SCH ×4 (06:42→22:44)
[2017-06-05] MEDS: ACCU-CHEK COMFORT CURVE STRIP VI SCH ×4 (06:42→22:00)
[2017-06-05] MEDS ORDERED: LIDOCAINE 2%HCL (LOCAL ANESTH.) INJ 20ML MDV ONE (10:38)
[2017-06-05] MEDS ORDERED: MIDAZOLAM HCL 1MG/1ML-2 ML VIAL ONE (10:55)
[2017-06-05] MEDS ORDERED: fentaNYL CITRATE 100 MCG/2 ML VL ONE (10:55)
[2017-06-05] MEDS ORDERED: GELATIN 1 SPONGE SIZE 50 TOP ONE (11:05)
[2017-06-05] MEDS: DOBUTamine 1000MCG/ML 250 ML IV SCH ×2 (12:08→19:06)
[2017-06-05] MEDS: ENTRESTO 49/51MG PO SCH ×2 (12:09→22:00)
[2017-06-05] MEDS: CARVEDILOL 3.125 MG TAB PO SCH ×2 (12:09→22:46)
[2017-06-05] MEDS: MULTIPLE VITAMINS W/ MINERALS TAB PO SCH (12:10)
[2017-06-05] MEDS: POTASSIUM CHL 20 Meq TABLET PO SCH (12:10)
[2017-06-05] MEDS: FUROSEMIDE 20 MG TAB PO SCH (12:10)
[2017-06-05] MEDS: ASCORBIC ACID 500 MG TAB PO SCH ×2 (12:11→22:46)
[2017-06-05] MEDS: amLODIPine BESYLATE 5 MG TAB PO SCH (12:11)
[2017-06-06] MEDS: DOBUTamine 1000MCG/ML 250 ML IV SCH (04:13)
[2017-06-06 05:00] VITALS: BP 112/52
[2017-06-06] MEDS: ACCU-CHEK COMFORT CURVE STRIP VI SCH ×2 (07:09→11:30)
[2017-06-06] MEDS: InsuLIN REG 1unit/0.01ml Soln (100units/ml) SC SCH ×2 (07:09→11:30)
[2017-06-06 08:00] VITALS: BP 117/53
[2017-06-06 08:16] VITALS: BP 117/53
[2017-06-06] MEDS: amLODIPine BESYLATE 5 MG TAB PO SCH (10:00)
[2017-06-06] MEDS: POTASSIUM CHL 20 Meq TABLET PO SCH (10:24)
[2017-06-06] MEDS: FUROSEMIDE 20 MG TAB PO SCH (10:25)
[2017-06-06] MEDS: MULTIPLE VITAMINS W/ MINERALS TAB PO SCH (10:25)
[2017-06-06] MEDS: ASCORBIC ACID 500 MG TAB PO SCH (10:26)
[2017-06-06] MEDS: CARVEDILOL 3.125 MG TAB PO SCH (10:26)
[2017-06-06] MEDS: ENTRESTO 49/51MG PO SCH (10:26)
[2017-06-06 16:47] VITALS: BP 104/52
[2017-06-06 18:17] VITALS: BP 104/52
== END 2017-06-06 19:08 | disposition home or self-care (01) | DRG 435 ==
LOC: TELE-E-ADS 11:29 → TELE-WESTW 13:27
PROVIDERS: ADMIT Internal Medicine Cardiovascular Disease; ATTEND Internal Medicine Cardiovascular Disease
PROC: 0W9G3ZX Drainage of Peritoneal Cavity, Percutaneous Approach, Diagnostic (ICD-10-PCS; 2017-06-04)
PROC: 0FB03ZX Excision of Liver, Percutaneous Approach, Diagnostic (ICD-10-PCS; principal; 2017-06-05)
DX: C22.8 Malignant neoplasm of liver, primary, unspecified as to type (principal); I50.23 Acute on chronic systolic (congestive) heart failure; I95.9 Hypotension, unspecified; R18.8 Other ascites; E11.21 Type 2 diabetes mellitus with diabetic nephropathy; E11.40 Type 2 diabetes mellitus with diabetic neuropathy, unspecified; K74.60 Unspecified cirrhosis of liver; R16.0 Hepatomegaly, not elsewhere classified; N19 Unspecified kidney failure; I25.5 Ischemic cardiomyopathy; Z95.1 Presence of aortocoronary bypass graft; Z95.810 Presence of automatic (implantable) cardiac defibrillator; Z79.82 Long term (current) use of aspirin; Z79.899 Other long term (current) drug therapy
CPT/HCPCS: 10022; 36415; 76700; 76942; 82962; 85025; 85610; 85730; 87205; 89051; 93306; C1729; G0463; J1815; J2250

== ENCOUNTER → 2017-06-02 | Outpatient (CLI) | payer MEDICARE, OTHER ==
[~2017-06-02] MED LIST changes: -ALBUMIN 25% 100 ML IV ONE; -FUROSEMIDE 40 MG/4 ML VIAL IV ONE; -FUROSEMIDE 40 MG/4 ML VIAL ONE; -POTASSIUM CHL 20 Meq TABLET PO ONE
[2017-06-02 11:00] VITALS: BP 133/63
[2017-06-02 13:10] VITALS: BP 129/64
== END | disposition home or self-care (01) ==
LOC: Rad HDHVI 10:08
PROVIDERS: ATTEND Internal Medicine Cardiovascular Disease
DX: I11.0 Hypertensive heart disease with heart failure (principal); I50.9 Heart failure, unspecified; J90 Pleural effusion, not elsewhere classified; E11.9 Type 2 diabetes mellitus without complications; K74.60 Unspecified cirrhosis of liver
CPT/HCPCS: 93306; G0463

== ENCOUNTER → 2017-06-08 | Outpatient (CLI) | payer MEDICARE, OTHER ==
[~2017-06-08] MED LIST changes: +SACU1TAB7 PO; +SILVER SULFADIAZINE 1 % TOPICAL CREAM 50GM TOP ONE; +SILVER SULFADIAZINE 1 % TOPICAL CREAM 50GM TOP SCH; +SUCR1TAB38 OR; +[UNRECOGNIZED DRUG - CODE] PO
[2017-06-08 15:50] VITALS: BP 125/56
[2017-06-08 16:00] VITALS: BP 114/52
[2017-06-08 16:40] VITALS: BP 114/52
== END | disposition home or self-care (01) ==
LOC: CHF HDHVI 15:56
PROVIDERS: ATTEND Internal Medicine Cardiovascular Disease
DX: I50.9 Heart failure, unspecified (principal); D64.9 Anemia, unspecified
CPT/HCPCS: G0463

== ENCOUNTER → 2017-06-12 | Outpatient (CLI) | payer MEDICARE, OTHER ==
[~2017-06-12] MED LIST changes: -ALIS300T PO; +BACITRACIN TOP OINT 1 UD PKG TOP ONE; -LISI40TA PO; -SILVER SULFADIAZINE 1 % TOPICAL CREAM 50GM TOP ONE; -SILVER SULFADIAZINE 1 % TOPICAL CREAM 50GM TOP SCH
[2017-06-12 11:30] VITALS: BP 114/51
[2017-06-12 16:27] LABS: Basophils # (auto) 0 uL; Basophils % (auto) 0.4 % (0.0-2.0); Eosinophils # (auto) 0.1 uL; Eosinophils % (auto) 0.9 % (0.0-7.0); Hematocrit 27.2 % (41.0-53.0); Hemoglobin 8.9 g/dL (13.5-17.5); Lymphocytes # (auto) 0.8 uL; Lymphocytes % (auto) 12.3 % (10.0-50.0); Mean Corpuscular Hemoglobin 31.1 pg (28.0-32.0); Mean Corpuscular Hgb Conc. 32.8 g/dL (32.0-36.0); Mean Corpuscular Volume 94.7 fL (80.0-100.0); Mean Platelet Volume 10.2 fL (6.9-10.8); Monocytes # (auto) 0.7 uL; Monocytes % (auto) 9.6 % (0.0-12.0); Neutrophils # (auto) 5.3 uL; Neutrophils % (auto) 76.8 % (37.0-80.0); Nucleated Red Blood Cells % 0.4 %; Platelet Count (auto) 251 10^3/uL (140-450); Red Cell Distribution Width 17.4 % (11.8-14.3); White Blood Cell 6.9 10^3/uL (4.4-10.8)
[2017-06-12 16:36] LABS: B-Type Natriuretic Peptide 2282.51 pg/mL (0-100)
[2017-06-12 16:47] LABS: Temperature: 22.8 C (20.0-25.0)
== END | disposition home or self-care (01) ==
LOC: CHF HDHVI 10:28
PROVIDERS: ATTEND Internal Medicine Cardiovascular Disease
DX: I50.9 Heart failure, unspecified (principal); D64.9 Anemia, unspecified
CPT/HCPCS: 36415; 83880; 85025; G0463; J1642

== ENCOUNTER → 2017-06-19 | Outpatient (CLI) | payer MEDICARE, OTHER ==
[~2017-06-19] MED LIST changes: -BACITRACIN TOP OINT 1 UD PKG TOP ONE; +CYANOCOBALAMIN (B-12) 1000 MCG/1 ML VIAL IM ONE; +CYANOCOBALAMIN (B-12) 1000 MCG/1 ML VIAL ONE
[2017-06-19 13:35] VITALS: BP 127/65
[2017-06-19 16:51] LABS: BUN/Creatinine Ratio 20.8; Basophils # (auto) 0 uL; Basophils % (auto) 0.5 % (0.0-2.0); Calcium 8.3 mg/dL (8.5-10.1); Eosinophils # (auto) 0.1 uL; Eosinophils % (auto) 0.8 % (0.0-7.0); Hematocrit 26.9 % (41.0-53.0); Hemoglobin 8.8 g/dL (13.5-17.5); Lymphocytes # (auto) 0.8 uL; Lymphocytes % (auto) 12.3 % (10.0-50.0); Magnesium 2.4 mg/dL (1.6-2.6); Mean Corpuscular Hemoglobin 30.8 pg (28.0-32.0); Mean Corpuscular Hgb Conc. 32.6 g/dL (32.0-36.0); Mean Corpuscular Volume 94.5 fL (80.0-100.0); Monocytes # (auto) 0.6 uL; Monocytes % (auto) 9.4 % (0.0-12.0); Neutrophils # (auto) 5.2 uL; Platelet Count (auto) 270 10^3/uL (140-450); Potassium 4.8 mmol/L (3.5-5.1); Red Cell Distribution Width 17.9 % (11.8-14.3); White Blood Cell 6.7 10^3/uL (4.4-10.8)
[2017-06-19 17:31] LABS: Temperature: 21.9 C (20.0-25.0)
== END | disposition home or self-care (01) ==
LOC: CHF HDHVI 12:32
PROVIDERS: ATTEND Internal Medicine Cardiovascular Disease
DX: I11.0 Hypertensive heart disease with heart failure (principal); I50.9 Heart failure, unspecified; E83.42 Hypomagnesemia; D64.9 Anemia, unspecified
CPT/HCPCS: 36415; 80048; 83735; 83880; 85025; 96372; G0463; J1642; J3420

== ENCOUNTER → 2017-06-21 | Outpatient (CLI) | payer MEDICARE, OTHER ==
[~2017-06-21] VITALS: Ht 30.5 cm; Wt 0.5 kg
[~2017-06-21] MED LIST changes: -CYANOCOBALAMIN (B-12) 1000 MCG/1 ML VIAL IM ONE; -CYANOCOBALAMIN (B-12) 1000 MCG/1 ML VIAL ONE; +EPOETIN ALFA 4,000 UNIT/ML VL ONE; +EPOETIN ALFA 4,000 UNIT/ML VL SC ONE
[2017-06-21 12:20] VITALS: BP 122/59
== END | disposition home or self-care (01) ==
LOC: CHF HDHVI 11:28
PROVIDERS: ATTEND Internal Medicine Cardiovascular Disease
DX: I11.0 Hypertensive heart disease with heart failure (principal); I50.9 Heart failure, unspecified; E83.42 Hypomagnesemia; D64.9 Anemia, unspecified
CPT/HCPCS: 96372; G0463; J0885

== ENCOUNTER 2017-06-26 07:01 | Day surgery (SDC) | payer MEDICARE, OTHER ==
[~2017-06-26] VITALS: Ht 177.8 cm; Wt 90.0 kg
[~2017-06-26 07:01] MED LIST changes: -CATHFLO ACTIVASE (ALTEPLASE) 2 MG VIAL IV ONE
[2017-06-26 08:59] LABS: INR 1.07 (0.9-1.15); Partial Thromboplastin Time 33.8 sec (22.64-33.71); Prothrombin Time 11.7 sec (9.37-12.3)
[2017-06-26] MEDS ORDERED: STERILE WATER 10 ML ONE (10:20)
[2017-06-26] MEDS ORDERED: CATHFLO ACTIVASE (ALTEPLASE) 2 MG VIAL IV ONE (11:45)
== END 2017-06-26 11:45 | disposition home or self-care (01) ==
LOC: CATH 07:01
PROVIDERS: ATTEND Internal Medicine Cardiovascular Disease
DX: R18.8 Other ascites (principal); D69.6 Thrombocytopenia, unspecified; E11.9 Type 2 diabetes mellitus without complications; I50.9 Heart failure, unspecified; K74.60 Unspecified cirrhosis of liver
CPT/HCPCS: 36415; 49082; 82962; 85610; 85730; 87205; 88341; 89051

== ENCOUNTER → 2017-06-26 | Outpatient (CLI) | payer MEDICARE, OTHER ==
[~2017-06-26] VITALS: Ht 1 cm; Wt 0.5 kg
[~2017-06-26] MED LIST changes: +CATHFLO ACTIVASE (ALTEPLASE) 2 MG VIAL IV ONE; -EPOETIN ALFA 4,000 UNIT/ML VL ONE; -EPOETIN ALFA 4,000 UNIT/ML VL SC ONE
[2017-06-26 16:10] VITALS: BP 127/53
[2017-06-26 17:10] LABS: BUN/Creatinine Ratio 22.9; Calcium 8.2 mg/dL (8.5-10.1); Magnesium 2.5 mg/dL (1.6-2.6); Potassium 4.6 mmol/L (3.5-5.1)
[2017-06-26 17:23] LABS: Basophils # (auto) 0 uL; Basophils % (auto) 0.4 % (0.0-2.0); Eosinophils # (auto) 0 uL; Eosinophils % (auto) 0.6 % (0.0-7.0); Hematocrit 29.3 % (41.0-53.0); Hemoglobin 9.1 g/dL (13.5-17.5); Lymphocytes # (auto) 0.8 uL; Lymphocytes % (auto) 11.4 % (10.0-50.0); Mean Corpuscular Hemoglobin 30.7 pg (28.0-32.0); Mean Corpuscular Hgb Conc. 31.3 g/dL (32.0-36.0); Mean Corpuscular Volume 98.2 fL (80.0-100.0); Mean Platelet Volume 9.5 fL (6.9-10.8); Monocytes # (auto) 0.7 uL; Neutrophils # (auto) 5.5 uL; Neutrophils % (auto) 77.6 % (37.0-80.0); Nucleated Red Blood Cells % 0.1 %; Platelet Count (auto) 292 10^3/uL (140-450); Red Cell Distribution Width 18.8 % (11.8-14.3)
== END | disposition home or self-care (01) ==
LOC: CHF HDHVI 13:33
PROVIDERS: ATTEND Internal Medicine Cardiovascular Disease
DX: C22.0 Liver cell carcinoma (principal); I11.0 Hypertensive heart disease with heart failure; I50.9 Heart failure, unspecified; D64.9 Anemia, unspecified; E83.42 Hypomagnesemia; R53.83 Other fatigue
CPT/HCPCS: 36415; 80048; 83735; 85025; G0463; J1642; J2997; J7030

== ENCOUNTER → 2017-07-03 | Outpatient (CLI) | payer MEDICARE, OTHER ==
[~2017-07-03] MED LIST changes: +MUPIROCIN 2% OINT 22GM ONE; +MUPIROCIN 2% OINT 22GM TOP ONE
[2017-07-03 11:00] VITALS: BP 118/56
[2017-07-03 12:53] LABS: Basophils # (auto) 0 uL; Basophils % (auto) 0.6 % (0.0-2.0); Eosinophils # (auto) 0.1 uL; Eosinophils % (auto) 1.1 % (0.0-7.0); Hematocrit 26.8 % (41.0-53.0); Hemoglobin 8.6 g/dL (13.5-17.5); Lymphocytes # (auto) 0.8 uL; Lymphocytes % (auto) 12.9 % (10.0-50.0); Mean Corpuscular Hemoglobin 30.5 pg (28.0-32.0); Mean Corpuscular Volume 95.3 fL (80.0-100.0); Mean Platelet Volume 9.9 fL (6.9-10.8); Monocytes # (auto) 0.6 uL; Monocytes % (auto) 10.1 % (0.0-12.0); Neutrophils # (auto) 4.5 uL; Neutrophils % (auto) 75.3 % (37.0-80.0); Nucleated Red Blood Cells % 0.1 %; Platelet Count (auto) 277 10^3/uL (140-450); Red Cell Distribution Width 17.3 % (11.8-14.3); White Blood Cell 5.9 10^3/uL (4.4-10.8)
[2017-07-03 13:00] LABS: BUN/Creatinine Ratio 19.2; Calcium 8.1 mg/dL (8.5-10.1); Potassium 4.5 mmol/L (3.5-5.1)
[2017-07-03 13:11] LABS: B-Type Natriuretic Peptide 3196.81 pg/mL (0-100)
[2017-07-03 13:12] LABS: Temperature: 22.2 C (20.0-25.0)
== END | disposition home or self-care (01) ==
LOC: CHF HDHVI 09:29
PROVIDERS: ATTEND Internal Medicine Cardiovascular Disease
DX: I11.0 Hypertensive heart disease with heart failure (principal); I50.9 Heart failure, unspecified; D64.9 Anemia, unspecified; E11.9 Type 2 diabetes mellitus without complications
CPT/HCPCS: 36415; 80048; 83880; 85025; G0463; J1642

== ENCOUNTER 2017-07-07 11:15 | Day surgery (SDC) | payer MEDICARE, OTHER ==
[~2017-07-07 11:15] MED LIST changes: -MUPIROCIN 2% OINT 22GM ONE; -MUPIROCIN 2% OINT 22GM TOP ONE
[2017-07-07 18:52] LABS: Body Fluid Polymorphonuclear 21 %
== END 2017-07-07 15:45 | disposition home or self-care (01) ==
LOC: CATH 11:15
PROVIDERS: ATTEND Internal Medicine Cardiovascular Disease
DX: R18.8 Other ascites (principal); I25.5 Ischemic cardiomyopathy; I50.20 Unspecified systolic (congestive) heart failure; I73.9 Peripheral vascular disease, unspecified; Z95.810 Presence of automatic (implantable) cardiac defibrillator; I20.9 Angina pectoris, unspecified; I50.9 Heart failure, unspecified; Z95.1 Presence of aortocoronary bypass graft; F41.9 Anxiety disorder, unspecified
CPT/HCPCS: 49082; 87205; 89051; J7030

== ENCOUNTER → 2017-07-10 | Outpatient (CLI) | payer MEDICARE, OTHER ==
[~2017-07-10] MED LIST changes: +BACITRACIN TOP OINT 1 UD PKG TOP ONE; +EPOETIN ALFA 4,000 UNIT/ML VL IV ONE; +EPOETIN ALFA 4,000 UNIT/ML VL ONE
[2017-07-10 12:30] VITALS: BP 112/58
[2017-07-10 16:52] VITALS: BP 112/58
== END | disposition home or self-care (01) ==
LOC: CHF HDHVI 11:12
PROVIDERS: ATTEND Internal Medicine Cardiovascular Disease
DX: I50.9 Heart failure, unspecified (principal); I25.10 Atherosclerotic heart disease of native coronary artery without angina pectoris; C22.9 Malignant neoplasm of liver, not specified as primary or secondary; D64.9 Anemia, unspecified; R60.0 Localized edema
CPT/HCPCS: 96372; G0463; J0885; J1642

== ENCOUNTER → 2017-07-12 | Outpatient (CLI) | payer MEDICARE, OTHER ==
[~2017-07-12] MED LIST changes: -BACITRACIN TOP OINT 1 UD PKG TOP ONE; -EPOETIN ALFA 4,000 UNIT/ML VL IV ONE; -EPOETIN ALFA 4,000 UNIT/ML VL ONE; +IOHEXOL 350 MG/ML 100ML IJ ONE; +READI-CAT 2 (BARIUM SULF)(VANILLA SMOOTHIE) 450ML ONE
[2017-07-12 14:45] VITALS: BP 107/47
[2017-07-12 15:30] VITALS: BP_SYST 102; BP_SYST 107; BP_DIAS 47
== END | disposition home or self-care (01) ==
LOC: CHF HDHVI 14:38
PROVIDERS: ATTEND Internal Medicine Cardiovascular Disease
DX: I50.9 Heart failure, unspecified (principal)
CPT/HCPCS: G0463

== ENCOUNTER → 2017-07-17 | Outpatient (CLI) | payer MEDICARE, OTHER ==
[~2017-07-17] VITALS: Ht 30.5 cm; Wt 0.5 kg
[~2017-07-17] MED LIST changes: +BACITRACIN TOP OINT 1 UD PKG TOP ONE; +CATHFLO ACTIVASE (ALTEPLASE) 2 MG VIAL IV ONE; -IOHEXOL 350 MG/ML 100ML IJ ONE; -READI-CAT 2 (BARIUM SULF)(VANILLA SMOOTHIE) 450ML ONE; +STERILE WATER 10 ML ONE
[2017-07-17 09:50] VITALS: BP 116/52
[2017-07-17 11:05] VITALS: BP 116/52
[2017-07-17 12:47] LABS: Basophils # (auto) 0 uL; Basophils % (auto) 0.7 % (0.0-2.0); Eosinophils # (auto) 0 uL; Eosinophils % (auto) 0.7 % (0.0-7.0); Hematocrit 27.7 % (41.0-53.0); Hemoglobin 9.1 g/dL (13.5-17.5); Lymphocytes # (auto) 0.6 uL; Lymphocytes % (auto) 10.6 % (10.0-50.0); Mean Corpuscular Hemoglobin 30.7 pg (28.0-32.0); Mean Corpuscular Hgb Conc. 32.8 g/dL (32.0-36.0); Mean Corpuscular Volume 93.6 fL (80.0-100.0); Monocytes # (auto) 0.5 uL; Monocytes % (auto) 8.8 % (0.0-12.0); Neutrophils # (auto) 4.8 uL; Neutrophils % (auto) 79.2 % (37.0-80.0); Nucleated Red Blood Cells % 0.2 %; Platelet Count (auto) 300 10^3/uL (140-450); Red Blood Cells 2.96 10^6/uL (4.5-5.90); Red Cell Distribution Width 16.1 % (11.8-14.3)
[2017-07-17 13:06] LABS: BUN/Creatinine Ratio 15.6; Calcium 8.4 mg/dL (8.5-10.1); Magnesium 2.8 mg/dL (1.6-2.6); Potassium 5.3 mmol/L (3.5-5.1)
== END | disposition home or self-care (01) ==
LOC: CHF HDHVI 09:57
PROVIDERS: ATTEND Internal Medicine Cardiovascular Disease
DX: I11.0 Hypertensive heart disease with heart failure (principal); I50.9 Heart failure, unspecified; E83.42 Hypomagnesemia; D64.9 Anemia, unspecified; E11.9 Type 2 diabetes mellitus without complications; C22.9 Malignant neoplasm of liver, not specified as primary or secondary
CPT/HCPCS: 36415; 80048; 83735; 83880; 85025; 96374; 96375; J1642; J2997

== ENCOUNTER → 2017-07-20 | Outpatient (CLI) | payer MEDICARE, OTHER ==
[~2017-07-20] MED LIST changes: -BACITRACIN TOP OINT 1 UD PKG TOP ONE; -CATHFLO ACTIVASE (ALTEPLASE) 2 MG VIAL IV ONE; -STERILE WATER 10 ML ONE
[2017-07-20 10:35] VITALS: BP 122/57
[2017-07-20 11:00] VITALS: BP 125/55
[2017-07-20 16:14] LABS: Potassium 4.9 mmol/L (3.5-5.1)
== END | disposition home or self-care (01) ==
LOC: CHF HDHVI 10:38
PROVIDERS: ATTEND Internal Medicine Cardiovascular Disease
DX: I50.9 Heart failure, unspecified (principal); Z95.1 Presence of aortocoronary bypass graft
CPT/HCPCS: 36415; 82565; 84132; 84520; G0463

== ENCOUNTER → 2017-07-24 | Outpatient (CLI) | payer MEDICARE, OTHER ==
[~2017-07-24] VITALS: Ht 165.1 cm; Wt 87.3 kg
[2017-07-24 10:36] VITALS: BP 116/52
[2017-07-24 12:58] LABS: Basophils # (auto) 0 uL; Basophils % (auto) 0.5 % (0.0-2.0); Eosinophils # (auto) 0 uL; Eosinophils % (auto) 0.5 % (0.0-7.0); Hematocrit 28.6 % (41.0-53.0); Hemoglobin 9.2 g/dL (13.5-17.5); Lymphocytes # (auto) 0.7 uL; Lymphocytes % (auto) 11.6 % (10.0-50.0); Mean Corpuscular Hemoglobin 30.3 pg (28.0-32.0); Mean Corpuscular Hgb Conc. 32.3 g/dL (32.0-36.0); Mean Corpuscular Volume 93.9 fL (80.0-100.0); Mean Platelet Volume 9.4 fL (6.9-10.8); Monocytes # (auto) 0.4 uL; Monocytes % (auto) 7.5 % (0.0-12.0); Neutrophils # (auto) 4.7 uL; Neutrophils % (auto) 79.9 % (37.0-80.0); Nucleated Red Blood Cells % 0.1 %; Platelet Count (auto) 316 10^3/uL (140-450); Red Cell Distribution Width 15.6 % (11.8-14.3); White Blood Cell 5.9 10^3/uL (4.4-10.8)
[2017-07-24 13:08] LABS: BUN/Creatinine Ratio 18.6; Calcium 8.5 mg/dL (8.5-10.1); Potassium 4.6 mmol/L (3.5-5.1)
[2017-07-24 13:23] LABS: B-Type Natriuretic Peptide 3250.94 pg/mL (0-100)
[2017-07-24 13:35] LABS: Temperature: 23.5 C (20.0-25.0)
== END | disposition home or self-care (01) ==
LOC: CHF HDHVI 09:46
PROVIDERS: ATTEND Internal Medicine Cardiovascular Disease
DX: I11.0 Hypertensive heart disease with heart failure (principal); I50.9 Heart failure, unspecified; D64.9 Anemia, unspecified
CPT/HCPCS: 36415; 80048; 83880; 85025; G0463; J1642; 96374

== ENCOUNTER → 2017-07-31 | Outpatient (CLI) | payer MEDICARE, OTHER ==
[~2017-07-31] MED LIST changes: +CYANOCOBALAMIN (B-12) 1000 MCG/1 ML VIAL IM ONE; +CYANOCOBALAMIN (B-12) 1000 MCG/1 ML VIAL ONE
[2017-07-31 10:50] VITALS: BP 124/55
[2017-07-31 12:41] LABS: Basophils # (auto) 0 uL; Basophils % (auto) 0.5 % (0.0-2.0); Eosinophils # (auto) 0 uL; Eosinophils % (auto) 0.4 % (0.0-7.0); Hematocrit 27.1 % (41.0-53.0); Lymphocytes # (auto) 0.9 uL; Lymphocytes % (auto) 14.4 % (10.0-50.0); Mean Corpuscular Hemoglobin 30.8 pg (28.0-32.0); Mean Corpuscular Hgb Conc. 33.1 g/dL (32.0-36.0); Mean Corpuscular Volume 93.2 fL (80.0-100.0); Mean Platelet Volume 9.8 fL (6.9-10.8); Monocytes # (auto) 0.5 uL; Monocytes % (auto) 7.8 % (0.0-12.0); Neutrophils # (auto) 4.6 uL; Neutrophils % (auto) 76.9 % (37.0-80.0); Nucleated Red Blood Cells % 0.2 %; Platelet Count (auto) 305 10^3/uL (140-450); Red Cell Distribution Width 14.8 % (11.8-14.3); White Blood Cell 5.9 10^3/uL (4.4-10.8)
[2017-07-31 12:49] LABS: INR 0.98 (0.9-1.15); Partial Thromboplastin Time 34.4 sec (22.64-33.71); Prothrombin Time 10.7 sec (9.37-12.3)
[2017-07-31 12:58] LABS: Calcium 8.3 mg/dL (8.5-10.1); Potassium 4.7 mmol/L (3.5-5.1)
== END | disposition home or self-care (01) ==
LOC: CHF HDHVI 09:34
PROVIDERS: ATTEND Internal Medicine Cardiovascular Disease
DX: Z01.818 Encounter for other preprocedural examination (principal); J90 Pleural effusion, not elsewhere classified; I10 Essential (primary) hypertension; E11.9 Type 2 diabetes mellitus without complications; D64.9 Anemia, unspecified; R79.1 Abnormal coagulation profile
CPT/HCPCS: 36415; 71020; 80048; 82962; 83036; 85025; 85610; 85730; 96372; G0463; J1642; J3420

== ENCOUNTER → 2017-08-01 | Day surgery (SDC) | payer MEDICARE, OTHER ==
[~2017-08-01] MED LIST changes: -CYANOCOBALAMIN (B-12) 1000 MCG/1 ML VIAL IM ONE; -CYANOCOBALAMIN (B-12) 1000 MCG/1 ML VIAL ONE
== END | disposition home or self-care (01) ==
LOC: CATH 11:58
PROVIDERS: ATTEND Internal Medicine Cardiovascular Disease
DX: R18.8 Other ascites (principal); I20.9 Angina pectoris, unspecified; I50.9 Heart failure, unspecified; Z95.1 Presence of aortocoronary bypass graft; F41.9 Anxiety disorder, unspecified; I73.9 Peripheral vascular disease, unspecified; I25.5 Ischemic cardiomyopathy
CPT/HCPCS: 49082; J7030

== ENCOUNTER → 2017-08-02 | Outpatient (CLI) | payer MEDICARE, OTHER ==
[2017-08-02 12:10] VITALS: BP 106/46
[2017-08-02 13:15] VITALS: BP 107/45
== END | disposition home or self-care (01) ==
LOC: CHF HDHVI 12:16
PROVIDERS: ATTEND Internal Medicine Cardiovascular Disease
DX: I25.10 Atherosclerotic heart disease of native coronary artery without angina pectoris (principal); E11.9 Type 2 diabetes mellitus without complications; I50.9 Heart failure, unspecified; I83.018 Varicose veins of right lower extremity with ulcer other part of lower leg; I83.028 Varicose veins of left lower extremity with ulcer other part of lower leg; L97.819 Non-pressure chronic ulcer of other part of right lower leg with unspecified severity; L97.829 Non-pressure chronic ulcer of other part of left lower leg with unspecified severity
CPT/HCPCS: G0463

== ENCOUNTER → 2017-08-07 | Outpatient (CLI) | payer MEDICARE, OTHER ==
[~2017-08-07] MED LIST changes: +CYANOCOBALAMIN (B-12) 1000 MCG/1 ML VIAL IM ONE; +CYANOCOBALAMIN (B-12) 1000 MCG/1 ML VIAL ONE
[2017-08-07 12:00] VITALS: BP 122/64
[2017-08-07 16:35] LABS: Potassium 4.5 mmol/L (3.5-5.1)
[2017-08-07 16:48] LABS: B-Type Natriuretic Peptide 2981.71 pg/mL (0-100)
[2017-08-07 16:55] LABS: Temperature: 22.8 C (20.0-25.0)
== END | disposition home or self-care (01) ==
LOC: CHF HDHVI 10:25
PROVIDERS: ATTEND Internal Medicine Cardiovascular Disease
DX: I50.9 Heart failure, unspecified (principal); E87.6 Hypokalemia; E11.9 Type 2 diabetes mellitus without complications; R94.4 Abnormal results of kidney function studies; I25.10 Atherosclerotic heart disease of native coronary artery without angina pectoris; C22.9 Malignant neoplasm of liver, not specified as primary or secondary; D64.9 Anemia, unspecified; I83.009 Varicose veins of unspecified lower extremity with ulcer of unspecified site; L97.918 Non-pressure chronic ulcer of unspecified part of right lower leg with other specified severity; L97.928 Non-pressure chronic ulcer of unspecified part of left lower leg with other specified severity
CPT/HCPCS: 36415; 82565; 83880; 84132; 84520; 96372; G0463; J1642; J3420

== ENCOUNTER → 2017-08-11 | Outpatient (CLI) | payer MEDICARE, OTHER ==
[~2017-08-11] VITALS: Ht 30.5 cm; Wt 0.5 kg
[~2017-08-11] MED LIST changes: -CYANOCOBALAMIN (B-12) 1000 MCG/1 ML VIAL IM ONE; -CYANOCOBALAMIN (B-12) 1000 MCG/1 ML VIAL ONE; +MUPIROCIN 2% OINT 22GM ONE; +MUPIROCIN 2% OINT 22GM TOP ONE
[2017-08-11 11:20] VITALS: BP 117/53
[2017-08-11 12:30] VITALS: BP 119/54
[2017-08-11 13:00] VITALS: BP 119/54
== END | disposition home or self-care (01) ==
LOC: CHF HDHVI 11:25
PROVIDERS: ATTEND Internal Medicine Cardiovascular Disease
DX: R89.9 Unspecified abnormal finding in specimens from other organs, systems and tissues (principal)
CPT/HCPCS: 87077; 87186; 87205; G0463

== ENCOUNTER → 2017-08-14 | Outpatient (CLI) | payer MEDICARE, OTHER ==
[~2017-08-14] MED LIST changes: +CYANOCOBALAMIN (B-12) 1000 MCG/1 ML VIAL IM ONE; +CYANOCOBALAMIN (B-12) 1000 MCG/1 ML VIAL ONE; -MUPIROCIN 2% OINT 22GM TOP ONE; +VANCOMYCIN 1GM/250ML 250 ML IV ONE
[2017-08-14] MEDS: MUPIROCIN 2% OINT 22GM TOP SCH ×2 (13:30→14:00)
[2017-08-14 14:38] VITALS: BP 124/55
[2017-08-14 16:21] LABS: BUN/Creatinine Ratio 28.7; Calcium 8.2 mg/dL (8.5-10.1); Potassium 4.9 mmol/L (3.5-5.1)
[2017-08-14 16:22] LABS: Basophils # (auto) 0 uL; Basophils % (auto) 0.8 % (0.0-2.0); Eosinophils # (auto) 0.1 uL; Eosinophils % (auto) 1.1 % (0.0-7.0); Hematocrit 26.4 % (41.0-53.0); Hemoglobin 8.7 g/dL (13.5-17.5); Lymphocytes # (auto) 0.8 uL; Lymphocytes % (auto) 12.2 % (10.0-50.0); Mean Corpuscular Hemoglobin 30.7 pg (28.0-32.0); Mean Corpuscular Hgb Conc. 32.9 g/dL (32.0-36.0); Mean Corpuscular Volume 93.1 fL (80.0-100.0); Mean Platelet Volume 9.7 fL (6.9-10.8); Monocytes # (auto) 0.4 uL; Neutrophils # (auto) 4.8 uL; Neutrophils % (auto) 78.9 % (37.0-80.0); Nucleated Red Blood Cells % 0.2 %; Platelet Count (auto) 309 10^3/uL (140-450); Red Cell Distribution Width 15.4 % (11.8-14.3); White Blood Cell 6.1 10^3/uL (4.4-10.8)
== END | disposition home or self-care (01) ==
LOC: CHF HDHVI 11:55
PROVIDERS: ATTEND Internal Medicine Cardiovascular Disease
DX: I11.0 Hypertensive heart disease with heart failure (principal); D64.9 Anemia, unspecified; I10 Essential (primary) hypertension; C22.8 Malignant neoplasm of liver, primary, unspecified as to type; R53.83 Other fatigue; L08.89 Other specified local infections of the skin and subcutaneous tissue; B95.7 Other staphylococcus as the cause of diseases classified elsewhere; E11.9 Type 2 diabetes mellitus without complications
CPT/HCPCS: 36415; 80048; 82962; 85025; 96365; 96372; G0463; J1642; J3370; J3420

== ENCOUNTER → 2017-08-16 | Outpatient (CLI) | payer MEDICARE, OTHER ==
[~2017-08-16] MED LIST changes: +BACITRACIN TOP OINT 1 UD PKG TOP ONE; -CYANOCOBALAMIN (B-12) 1000 MCG/1 ML VIAL IM ONE; -CYANOCOBALAMIN (B-12) 1000 MCG/1 ML VIAL ONE; +MUPIROCIN 2% OINT 22GM TOP ONE
[2017-08-16 10:30] VITALS: BP 105/52
[2017-08-16 12:20] VITALS: BP 114/50
== END ==
LOC: CHF HDHVI 10:46
PROVIDERS: ATTEND Internal Medicine Cardiovascular Disease
DX: I50.9 Heart failure, unspecified (principal); I25.10 Atherosclerotic heart disease of native coronary artery without angina pectoris; E11.9 Type 2 diabetes mellitus without complications; R60.0 Localized edema; I83.019 Varicose veins of right lower extremity with ulcer of unspecified site; L97.919 Non-pressure chronic ulcer of unspecified part of right lower leg with unspecified severity
CPT/HCPCS: 82962; 96365; G0463; J1642; J3370

== ENCOUNTER → 2017-08-18 | Outpatient (CLI) | payer MEDICARE, OTHER ==
[~2017-08-18] MED LIST changes: -BACITRACIN TOP OINT 1 UD PKG TOP ONE
[2017-08-18 12:50] VITALS: BP 106/48
[2017-08-18 16:04] LABS: Basophils # (auto) 0 uL; Basophils % (auto) 0.7 % (0.0-2.0); Eosinophils # (auto) 0 uL; Hemoglobin 8.3 g/dL (13.5-17.5); Lymphocytes # (auto) 0.9 uL; Mean Corpuscular Hemoglobin 30.3 pg (28.0-32.0); Monocytes # (auto) 0.4 uL; Neutrophils # (auto) 3.7 uL
[2017-08-18 16:06] LABS: Eosinophils % (auto) 0.4 % (0.0-7.0); Hematocrit 25.7 % (41.0-53.0); Lymphocytes % (auto) 17.2 % (10.0-50.0); Mean Corpuscular Hgb Conc. 32.2 g/dL (32.0-36.0); Mean Corpuscular Volume 94.1 fL (80.0-100.0); Mean Platelet Volume 10.2 fL (6.9-10.8); Monocytes % (auto) 7.6 % (0.0-12.0); Neutrophils % (auto) 74.1 % (37.0-80.0); Nucleated Red Blood Cells % 0.1 %; Platelet Count (auto) 260 10^3/uL (140-450); Red Cell Distribution Width 15.2 % (11.8-14.3)
[2017-08-18 16:29] LABS: Albumin 2.1 g/dL (3.4-5.0); BUN/Creatinine Ratio 29.7; Bilirubin, Total 0.9 mg/dL (0.2-1.0); Calcium 8.1 mg/dL (8.5-10.1); Magnesium 2.7 mg/dL (1.6-2.6); Potassium 4.8 mmol/L (3.5-5.1); Total Protein 6.6 g/dL (6.4-8.2)
[2017-08-18 16:35] LABS: B-Type Natriuretic Peptide 3430.12 pg/mL (0-100)
[2017-08-18 16:43] LABS: Temperature: 22.6 C (20.0-25.0)
== END | disposition home or self-care (01) ==
LOC: CHF HDHVI 11:07
PROVIDERS: ATTEND Internal Medicine Cardiovascular Disease
DX: I11.0 Hypertensive heart disease with heart failure (principal); I50.9 Heart failure, unspecified; C22.9 Malignant neoplasm of liver, not specified as primary or secondary; A49.8 Other bacterial infections of unspecified site; E55.9 Vitamin D deficiency, unspecified; D51.9 Vitamin B12 deficiency anemia, unspecified; E11.9 Type 2 diabetes mellitus without complications; N19 Unspecified kidney failure; D64.9 Anemia, unspecified; Z79.899 Other long term (current) drug therapy
CPT/HCPCS: 36415; 80053; 80202; 82306; 82607; 82962; 83735; 83880; 85025; 96365; G0463; J1642; J3370

== ENCOUNTER → 2017-08-21 | Outpatient (CLI) | payer MEDICARE, OTHER ==
[~2017-08-21] MED LIST changes: -MUPIROCIN 2% OINT 22GM ONE; -MUPIROCIN 2% OINT 22GM TOP ONE; +VANCOMYCIN 1GM/250ML 250 ML IV SCH
[2017-08-21 12:33] LABS: Hematocrit 25.9 % (41.0-53.0); Hemoglobin 8.3 g/dL (13.5-17.5)
[2017-08-21 12:57] LABS: Potassium 4.6 mmol/L (3.5-5.1)
[2017-08-21 14:54] VITALS: BP 115/55
== END | disposition home or self-care (01) ==
LOC: CHF HDHVI 10:33
PROVIDERS: ATTEND Internal Medicine Cardiovascular Disease
DX: E87.5 Hyperkalemia (principal); R94.4 Abnormal results of kidney function studies; E83.118 Other hemochromatosis; A49.8 Other bacterial infections of unspecified site
CPT/HCPCS: 36415; 80202; 82565; 82962; 84132; 84520; 85014; 85018; 96365; G0463; J1642; J3370

== ENCOUNTER → 2017-08-23 | Outpatient (CLI) | payer MEDICARE, OTHER ==
[~2017-08-23] MED LIST changes: +MUPIROCIN 2% OINT 22GM ONE; +MUPIROCIN 2% OINT 22GM TOP ONE; -VANCOMYCIN 1GM/250ML 250 ML IV SCH
[2017-08-23 12:00] VITALS: BP 116/57
[2017-08-23 13:00] VITALS: BP 116/57
== END | disposition home or self-care (01) ==
LOC: CHF HDHVI 11:32
PROVIDERS: ATTEND Internal Medicine Cardiovascular Disease
DX: I50.9 Heart failure, unspecified (principal); B95.62 Methicillin resistant Staphylococcus aureus infection as the cause of diseases classified elsewhere; C22.8 Malignant neoplasm of liver, primary, unspecified as to type; R53.83 Other fatigue
CPT/HCPCS: 82962; 96365; G0463; J1642; J3370

== ENCOUNTER → 2017-08-25 | Outpatient (CLI) | payer MEDICARE, OTHER ==
[~2017-08-25] VITALS: Ht 30.5 cm; Wt 0.5 kg
[~2017-08-25] MED LIST changes: -MUPIROCIN 2% OINT 22GM ONE; -MUPIROCIN 2% OINT 22GM TOP ONE
[2017-08-25 13:30] VITALS: BP 112/54
== END | disposition home or self-care (01) ==
LOC: CHF HDHVI 12:13
PROVIDERS: ATTEND Internal Medicine Cardiovascular Disease
DX: I11.0 Hypertensive heart disease with heart failure (principal); I50.9 Heart failure, unspecified; E11.9 Type 2 diabetes mellitus without complications; B95.62 Methicillin resistant Staphylococcus aureus infection as the cause of diseases classified elsewhere; I42.9 Cardiomyopathy, unspecified; R60.9 Edema, unspecified; Z95.1 Presence of aortocoronary bypass graft
CPT/HCPCS: 82962; G0463; J3370

== ENCOUNTER → 2017-08-29 | Outpatient (CLI) | payer MEDICARE, OTHER ==
[~2017-08-29] MED LIST changes: -VANCOMYCIN 1GM/250ML 250 ML IV ONE
[2017-08-29 09:00] VITALS: BP 107/51
[2017-08-29 12:15] LABS: Basophils # (auto) 0 uL; Basophils % (auto) 0.5 % (0.0-2.0); Eosinophils # (auto) 0 uL; Eosinophils % (auto) 0.8 % (0.0-7.0); Hematocrit 26.3 % (41.0-53.0); Hemoglobin 8.5 g/dL (13.5-17.5); Lymphocytes # (auto) 0.7 uL; Lymphocytes % (auto) 14.7 % (10.0-50.0); Mean Corpuscular Hemoglobin 30.5 pg (28.0-32.0); Mean Corpuscular Hgb Conc. 32.2 g/dL (32.0-36.0); Mean Corpuscular Volume 94.6 fL (80.0-100.0); Mean Platelet Volume 9.7 fL (6.9-10.8); Monocytes # (auto) 0.4 uL; Monocytes % (auto) 8.2 % (0.0-12.0); Neutrophils # (auto) 3.9 uL; Neutrophils % (auto) 75.8 % (37.0-80.0); Platelet Count (auto) 235 10^3/uL (140-450); Red Cell Distribution Width 17.3 % (11.8-14.3); White Blood Cell 5.1 10^3/uL (4.4-10.8)
[2017-08-29 12:20] LABS: BUN/Creatinine Ratio 33.5; Calcium 8.3 mg/dL (8.5-10.1); Potassium 4.6 mmol/L (3.5-5.1)
[2017-08-29 12:39] LABS: B-Type Natriuretic Peptide 3289.06 pg/mL (0-100)
[2017-08-29 12:43] LABS: Temperature: 23.5 C (20.0-25.0)
[2017-08-29 13:49] VITALS: BP 107/51
== END | disposition home or self-care (01) ==
LOC: CHF HDHVI 11:11
PROVIDERS: ATTEND Internal Medicine Cardiovascular Disease
DX: I11.0 Hypertensive heart disease with heart failure (principal); I50.9 Heart failure, unspecified; D64.9 Anemia, unspecified; E11.52 Type 2 diabetes mellitus with diabetic peripheral angiopathy with gangrene
CPT/HCPCS: 36415; 80048; 82962; 83880; 85025; G0463; J1642

== ENCOUNTER → 2017-09-01 | Outpatient (CLI) | payer MEDICARE, OTHER ==
[2017-09-01 09:55] VITALS: BP 114/49
[2017-09-01 10:55] VITALS: BP 103/44
== END | disposition home or self-care (01) ==
LOC: CHF HDHVI 10:00
PROVIDERS: ATTEND Internal Medicine Cardiovascular Disease
DX: E11.9 Type 2 diabetes mellitus without complications (principal); I95.9 Hypotension, unspecified; I50.9 Heart failure, unspecified; I48.91 Unspecified atrial fibrillation
CPT/HCPCS: G0463

== ENCOUNTER → 2017-09-05 | Outpatient (CLI) | payer MEDICARE, OTHER ==
[2017-09-05 14:05] VITALS: BP 107/50
[2017-09-05 16:01] LABS: Potassium 5.1 mmol/L (3.5-5.1)
[2017-09-05 16:13] LABS: Basophils # (auto) 0 uL; Basophils % (auto) 0.5 % (0.0-2.0); Eosinophils # (auto) 0 uL; Hemoglobin 8.4 g/dL (13.5-17.5); Lymphocytes # (auto) 1.1 uL; Mean Platelet Volume 10.6 fL (6.9-10.8); Monocytes # (auto) 0.3 uL; Nucleated Red Blood Cells % 0.2 %; White Blood Cell 4.5 10^3/uL (4.4-10.8)
[2017-09-05 16:15] LABS: Eosinophils % (auto) 0.7 % (0.0-7.0); Hematocrit 25.9 % (41.0-53.0); Lymphocytes % (auto) 24.4 % (10.0-50.0); Mean Corpuscular Hemoglobin 31.1 pg (28.0-32.0); Mean Corpuscular Hgb Conc. 32.3 g/dL (32.0-36.0); Monocytes % (auto) 7.2 % (0.0-12.0); Neutrophils % (auto) 67.2 % (37.0-80.0); Platelet Count (auto) 217 10^3/uL (140-450); Red Cell Distribution Width 17.6 % (11.8-14.3)
[2017-09-05 16:19] LABS: B-Type Natriuretic Peptide 2878.34 pg/mL (0-100)
[2017-09-05 16:47] LABS: Temperature: 23.1 C (20.0-25.0)
== END | disposition home or self-care (01) ==
LOC: CHF HDHVI 12:35
PROVIDERS: ATTEND Internal Medicine Cardiovascular Disease
DX: I50.9 Heart failure, unspecified (principal); E87.5 Hyperkalemia; R94.4 Abnormal results of kidney function studies; D64.9 Anemia, unspecified; I25.10 Atherosclerotic heart disease of native coronary artery without angina pectoris; E11.9 Type 2 diabetes mellitus without complications
CPT/HCPCS: 36415; 82565; 82962; 83880; 84132; 84520; 85025; 96374; G0463; J1642

== ENCOUNTER → 2017-09-12 | Outpatient (CLI) | payer MEDICARE, OTHER ==
[2017-09-12 13:35] VITALS: BP 128/53
[2017-09-12 16:34] LABS: Basophils # (auto) 0 uL; Calcium 8.1 mg/dL (8.5-10.1); Eosinophils # (auto) 0 uL; Eosinophils % (auto) 0.8 % (0.0-7.0); Hemoglobin 7.8 g/dL (13.5-17.5); Lymphocytes # (auto) 0.8 uL; Magnesium 3.1 mg/dL (1.6-2.6); Monocytes # (auto) 0.4 uL; Potassium 5.4 mmol/L (3.5-5.1)
[2017-09-12 16:36] LABS: Basophils % (auto) 0.6 % (0.0-2.0); Hematocrit 24.4 % (41.0-53.0); Lymphocytes % (auto) 15.8 % (10.0-50.0); Mean Corpuscular Hemoglobin 30.6 pg (28.0-32.0); Mean Corpuscular Hgb Conc. 32.1 g/dL (32.0-36.0); Mean Corpuscular Volume 95.5 fL (80.0-100.0); Neutrophils # (auto) 3.7 uL; Neutrophils % (auto) 74.8 % (37.0-80.0); Platelet Count (auto) 206 10^3/uL (140-450); Red Blood Cells 2.56 10^6/uL (4.5-5.90)
[2017-09-12 17:07] LABS: Partial Thromboplastin Time 33.3 sec (22.64-33.71); Prothrombin Time 10.9 sec (9.37-12.3)
== END | disposition home or self-care (01) ==
LOC: CHF HDHVI 12:21
PROVIDERS: ATTEND Internal Medicine Cardiovascular Disease
DX: C22.9 Malignant neoplasm of liver, not specified as primary or secondary (principal); I11.0 Hypertensive heart disease with heart failure; I50.9 Heart failure, unspecified; E11.9 Type 2 diabetes mellitus without complications; E83.42 Hypomagnesemia; D64.9 Anemia, unspecified; R79.1 Abnormal coagulation profile; I25.10 Atherosclerotic heart disease of native coronary artery without angina pectoris; R60.0 Localized edema
CPT/HCPCS: 36415; 80048; 82962; 83735; 83880; 85025; 85610; 85730; G0463; J1642

== ENCOUNTER → 2017-09-18 | Outpatient (CLI) | payer MEDICARE, OTHER ==
[~2017-09-18] VITALS: Ht 165.1 cm; Wt 88.1 kg
[~2017-09-18] MED LIST changes: +CATHFLO ACTIVASE (ALTEPLASE) 2 MG VIAL IV ONE; +STERILE WATER 10 ML ONE
[2017-09-18 13:50] VITALS: BP 105/49
[2017-09-18 16:37] LABS: BUN/Creatinine Ratio 28.7; Calcium 8.1 mg/dL (8.5-10.1); Potassium 5.1 mmol/L (3.5-5.1)
== END | disposition home or self-care (01) ==
LOC: CHF HDHVI 12:01
PROVIDERS: ATTEND Internal Medicine Cardiovascular Disease
DX: C22.9 Malignant neoplasm of liver, not specified as primary or secondary (principal); I11.0 Hypertensive heart disease with heart failure; I50.9 Heart failure, unspecified; E11.9 Type 2 diabetes mellitus without complications; I25.10 Atherosclerotic heart disease of native coronary artery without angina pectoris; I83.009 Varicose veins of unspecified lower extremity with ulcer of unspecified site; L97.919 Non-pressure chronic ulcer of unspecified part of right lower leg with unspecified severity; L97.929 Non-pressure chronic ulcer of unspecified part of left lower leg with unspecified severity
CPT/HCPCS: 36415; 80048; 82962; 83880; 96374; G0463; J1642; J2997

== ENCOUNTER → 2017-09-26 | Outpatient (CLI) | payer MEDICARE, OTHER ==
[~2017-09-26] MED LIST changes: +BACITRACIN TOP OINT 1 UD PKG TOP ONE; -CATHFLO ACTIVASE (ALTEPLASE) 2 MG VIAL IV ONE; +CYANOCOBALAMIN (B-12) 1000 MCG/1 ML VIAL IM ONE; +CYANOCOBALAMIN (B-12) 1000 MCG/1 ML VIAL ONE; +SILVER SULFADIAZINE 1 % TOPICAL CREAM 50GM TOP ONE; -STERILE WATER 10 ML ONE
[2017-09-26 11:55] VITALS: BP 114/50
[2017-09-26 12:00] VITALS: BP 112/47
[2017-09-26 16:32] LABS: Basophils # (auto) 0 uL; Basophils % (auto) 0.8 % (0.0-2.0); Eosinophils # (auto) 0 uL; Eosinophils % (auto) 0.7 % (0.0-7.0); Hematocrit 27.8 % (41.0-53.0); Hemoglobin 8.8 g/dL (13.5-17.5); Lymphocytes # (auto) 0.8 uL; Lymphocytes % (auto) 16.1 % (10.0-50.0); Mean Corpuscular Hemoglobin 30.4 pg (28.0-32.0); Mean Corpuscular Hgb Conc. 31.7 g/dL (32.0-36.0); Mean Corpuscular Volume 95.8 fL (80.0-100.0); Monocytes # (auto) 0.4 uL; Monocytes % (auto) 7.9 % (0.0-12.0); Neutrophils # (auto) 3.5 uL; Neutrophils % (auto) 74.5 % (37.0-80.0); Nucleated Red Blood Cells % 0.1 %; Platelet Count (auto) 221 10^3/uL (140-450); Red Cell Distribution Width 17.8 % (11.8-14.3); White Blood Cell 4.7 10^3/uL (4.4-10.8)
[2017-09-26 16:44] LABS: BUN/Creatinine Ratio 30.5; Calcium 8.7 mg/dL (8.5-10.1); Magnesium 2.7 mg/dL (1.6-2.6); Potassium 4.9 mmol/L (3.5-5.1)
== END | disposition home or self-care (01) ==
LOC: CHF HDHVI 08:26
PROVIDERS: ATTEND Internal Medicine Cardiovascular Disease
DX: I11.0 Hypertensive heart disease with heart failure (principal); I50.9 Heart failure, unspecified; D64.9 Anemia, unspecified; E83.42 Hypomagnesemia; E11.9 Type 2 diabetes mellitus without complications
CPT/HCPCS: 36415; 80048; 83735; 83880; 85025; 96372; G0463; J1642; J3420

== ENCOUNTER → 2017-09-28 | Outpatient (CLI) | payer MEDICARE, OTHER ==
[~2017-09-28] MED LIST changes: -BACITRACIN TOP OINT 1 UD PKG TOP ONE; -CYANOCOBALAMIN (B-12) 1000 MCG/1 ML VIAL IM ONE; -CYANOCOBALAMIN (B-12) 1000 MCG/1 ML VIAL ONE; -SILVER SULFADIAZINE 1 % TOPICAL CREAM 50GM TOP ONE
[2017-09-28 13:10] VITALS: BP 126/58
== END | disposition home or self-care (01) ==
LOC: CHF HDHVI 11:23
PROVIDERS: ATTEND Internal Medicine Cardiovascular Disease
DX: Z45.010 Encounter for checking and testing of cardiac pacemaker pulse generator [battery] (principal); C25.9 Malignant neoplasm of pancreas, unspecified; E11.9 Type 2 diabetes mellitus without complications
CPT/HCPCS: 82962; G0463

== ENCOUNTER → 2017-10-02 | Outpatient (CLI) | payer MEDICARE, OTHER ==
[2017-10-02 13:00] VITALS: BP 126/48
[2017-10-02 16:35] LABS: Calcium 8.5 mg/dL (8.5-10.1); Potassium 4.8 mmol/L (3.5-5.1)
[2017-10-02 16:38] LABS: BUN/Creatinine Ratio 27.3
[2017-10-02 17:15] LABS: INR 0.98 (0.9-1.15); Partial Thromboplastin Time 32.7 sec (22.64-33.71); Prothrombin Time 10.7 sec (9.37-12.3)
== END | disposition home or self-care (01) ==
LOC: CHF HDHVI 11:56
PROVIDERS: ATTEND Internal Medicine Cardiovascular Disease
DX: I11.0 Hypertensive heart disease with heart failure (principal); I50.9 Heart failure, unspecified; R79.1 Abnormal coagulation profile
CPT/HCPCS: 36415; 80048; 82962; 83880; 85610; 85730; 87077; 87186; 87205; G0463; J1642

== ENCOUNTER → 2017-10-03 | Outpatient (CLI) | payer MEDICARE, OTHER ==
[~2017-10-03] MED LIST changes: +LIDOCAINE 1% HCL (LOCAL ANESTH.) INJ 20ML MDV ID ONE; +SODIUM CHLOR 0.9% PF (SALINE LOCK) 10ML VIAL IV SCH
== END ==
LOC: XYW 13:06
PROVIDERS: ATTEND Internal Medicine Cardiovascular Disease
DX: Z45.2 Encounter for adjustment and management of vascular access device (principal); I70.0 Atherosclerosis of aorta; I51.7 Cardiomegaly
CPT/HCPCS: 71045

== ENCOUNTER → 2017-10-09 | Outpatient (CLI) | payer MEDICARE, OTHER ==
[~2017-10-09] MED LIST changes: -LIDOCAINE 1% HCL (LOCAL ANESTH.) INJ 20ML MDV ID ONE; -SODIUM CHLOR 0.9% PF (SALINE LOCK) 10ML VIAL IV SCH
[2017-10-09 12:15] VITALS: BP 119/65
[2017-10-09 14:18] VITALS: BP 120/58
[2017-10-09 16:28] LABS: Basophils # (auto) 0 uL; Eosinophils # (auto) 0 uL; Hemoglobin 7.9 g/dL (13.5-17.5); Lymphocytes # (auto) 0.8 uL; Mean Corpuscular Hemoglobin 31.3 pg (28.0-32.0); Monocytes # (auto) 0.4 uL; Neutrophils % (auto) 80.7 % (37.0-80.0); Nucleated Red Blood Cells % 0.1 %; Red Blood Cells 2.53 10^6/uL (4.5-5.90); White Blood Cell 6.5 10^3/uL (4.4-10.8)
[2017-10-09 16:32] LABS: Basophils % (auto) 0.4 % (0.0-2.0); Eosinophils % (auto) 0.5 % (0.0-7.0); Hematocrit 23.9 % (41.0-53.0); Lymphocytes % (auto) 11.7 % (10.0-50.0); Mean Corpuscular Hgb Conc. 33.1 g/dL (32.0-36.0); Mean Corpuscular Volume 94.6 fL (80.0-100.0); Monocytes % (auto) 6.7 % (0.0-12.0); Neutrophils # (auto) 5.2 uL; Platelet Count (auto) 293 10^3/uL (140-450); Red Cell Distribution Width 16.6 % (11.8-14.3)
[2017-10-09 16:34] LABS: BUN/Creatinine Ratio 28.2; Calcium 8.2 mg/dL (8.5-10.1)
== END | disposition home or self-care (01) ==
LOC: CHF HDHVI 12:16
PROVIDERS: ATTEND Internal Medicine Cardiovascular Disease
DX: I11.0 Hypertensive heart disease with heart failure (principal); I50.9 Heart failure, unspecified; D64.9 Anemia, unspecified; Z95.1 Presence of aortocoronary bypass graft; Z79.899 Other long term (current) drug therapy
CPT/HCPCS: 36415; 80048; 82962; 83880; 85025; 85610; G0463; J1642

== ENCOUNTER → 2017-10-11 | Outpatient (CLI) | payer MEDICARE, OTHER ==
[2017-10-11 14:00] VITALS: BP 127/57
[2017-10-11 16:51] LABS: INR 1.04 (0.9-1.15); Partial Thromboplastin Time 33.6 sec (22.64-33.71); Prothrombin Time 11.3 sec (9.37-12.3)
== END | disposition home or self-care (01) ==
LOC: CHF HDHVI 12:24
PROVIDERS: ATTEND Internal Medicine Cardiovascular Disease
DX: E11.9 Type 2 diabetes mellitus without complications (principal); R79.1 Abnormal coagulation profile; I11.0 Hypertensive heart disease with heart failure; I50.9 Heart failure, unspecified
CPT/HCPCS: 36415; 82962; 85610; 85730; G0463; J1642

== ENCOUNTER 2017-10-13 07:06 | Day surgery (SDC) | payer MEDICARE, OTHER ==
[2017-10-13] VITALS (11 sets, daily range): BP systolic 104–118; BP diastolic 54–66
[2017-10-13] MEDS ORDERED: IOHEXOL 350 MG/ML 100ML IJ ONE (07:35)
== END 2017-10-13 16:45 | disposition home or self-care (01) ==
LOC: CATH 07:06
PROVIDERS: ATTEND Internal Medicine Cardiovascular Disease
DX: R18.8 Other ascites (principal); C25.9 Malignant neoplasm of pancreas, unspecified; I20.9 Angina pectoris, unspecified; I50.9 Heart failure, unspecified; Z95.1 Presence of aortocoronary bypass graft; F41.9 Anxiety disorder, unspecified
CPT/HCPCS: 36430; 49082; 86850; 86900; 86901; 86920; J1644; J7040; P9016; Q9967

== ENCOUNTER → 2017-10-16 | Outpatient (CLI) | payer MEDICARE, OTHER ==
[2017-10-16 12:30] VITALS: BP 123/57
[2017-10-16 14:30] VITALS: BP 137/57
[2017-10-16 17:02] LABS: Basophils # (auto) 0 uL; Basophils % (auto) 0.4 % (0.0-2.0); Eosinophils # (auto) 0 uL; Eosinophils % (auto) 0.4 % (0.0-7.0); Hematocrit 28.7 % (41.0-53.0); Hemoglobin 9.4 g/dL (13.5-17.5); Lymphocytes # (auto) 0.8 uL; Lymphocytes % (auto) 12.2 % (10.0-50.0); Mean Corpuscular Hgb Conc. 32.9 g/dL (32.0-36.0); Mean Corpuscular Volume 94.1 fL (80.0-100.0); Monocytes # (auto) 0.6 uL; Monocytes % (auto) 8.2 % (0.0-12.0); Neutrophils # (auto) 5.5 uL; Neutrophils % (auto) 78.8 % (37.0-80.0); Nucleated Red Blood Cells % 0.2 %; Platelet Count (auto) 291 10^3/uL (140-450); Red Blood Cells 3.05 10^6/uL (4.5-5.90); Red Cell Distribution Width 16.4 % (11.8-14.3); White Blood Cell 6.9 10^3/uL (4.4-10.8)
[2017-10-16 17:15] LABS: Albumin 1.9 g/dL (3.4-5.0); BUN/Creatinine Ratio 31.4; Bilirubin, Total 0.8 mg/dL (0.2-1.0); Calcium 8.2 mg/dL (8.5-10.1); Potassium 4.9 mmol/L (3.5-5.1); Total Protein 6.5 g/dL (6.4-8.2)
== END | disposition home or self-care (01) ==
LOC: CHF HDHVI 12:47
PROVIDERS: ATTEND Internal Medicine Cardiovascular Disease
DX: I11.0 Hypertensive heart disease with heart failure (principal); E11.40 Type 2 diabetes mellitus with diabetic neuropathy, unspecified; E11.21 Type 2 diabetes mellitus with diabetic nephropathy; E11.319 Type 2 diabetes mellitus with unspecified diabetic retinopathy without macular edema; I50.9 Heart failure, unspecified; D64.9 Anemia, unspecified; R70.0 Elevated erythrocyte sedimentation rate; I25.5 Ischemic cardiomyopathy; R89.9 Unspecified abnormal finding in specimens from other organs, systems and tissues; C25.9 Malignant neoplasm of pancreas, unspecified; Z95.1 Presence of aortocoronary bypass graft; R18.8 Other ascites; Z95.810 Presence of automatic (implantable) cardiac defibrillator
CPT/HCPCS: 36415; 80053; 82962; 83880; 85025; 85652; 87205; G0463; J1642; 87077; 87186

== ENCOUNTER → 2017-10-23 | Outpatient (CLI) | payer MEDICARE, OTHER ==
[~2017-10-23] MED LIST changes: +CYANOCOBALAMIN (B-12) 1000 MCG/1 ML VIAL IM ONE; +CYANOCOBALAMIN (B-12) 1000 MCG/1 ML VIAL ONE
[2017-10-23 11:30] VITALS: BP 123/57
[2017-10-23 12:00] VITALS: BP 130/60
[2017-10-23 13:51] VITALS: BP 130/60
[2017-10-23 16:57] LABS: Basophils # (auto) 0 uL; Basophils % (auto) 0.4 % (0.0-2.0); Eosinophils # (auto) 0.1 uL; Mean Corpuscular Hemoglobin 30.7 pg (28.0-32.0); Mean Corpuscular Hgb Conc. 32.3 g/dL (32.0-36.0); Monocytes # (auto) 0.5 uL; Monocytes % (auto) 8.4 % (0.0-12.0); Neutrophils # (auto) 4.5 uL; Neutrophils % (auto) 74.2 % (37.0-80.0); Nucleated Red Blood Cells % 0.1 %; Platelet Count (auto) 244 10^3/uL (140-450); Red Blood Cells 2.95 10^6/uL (4.5-5.90); Red Cell Distribution Width 16.8 % (11.8-14.3)
[2017-10-23 17:10] LABS: Potassium 4.8 mmol/L (3.5-5.1)
== END | disposition home or self-care (01) ==
LOC: CHF HDHVI 11:26
PROVIDERS: ATTEND Internal Medicine Cardiovascular Disease
DX: I50.9 Heart failure, unspecified (principal); E87.5 Hyperkalemia; C22.8 Malignant neoplasm of liver, primary, unspecified as to type; R94.4 Abnormal results of kidney function studies; D64.9 Anemia, unspecified; R18.8 Other ascites; R53.83 Other fatigue
CPT/HCPCS: 36415; 82565; 82962; 83880; 84132; 84520; 85025; 96372; G0463; J1642; J3420

== ENCOUNTER → 2017-10-30 | Outpatient (CLI) | payer MEDICARE, OTHER ==
[~2017-10-30] VITALS: Ht 30.5 cm; Wt 0.5 kg
[~2017-10-30] MED LIST changes: -CYANOCOBALAMIN (B-12) 1000 MCG/1 ML VIAL IM ONE; -CYANOCOBALAMIN (B-12) 1000 MCG/1 ML VIAL ONE
[2017-10-30 10:40] VITALS: BP 121/52
[2017-10-30 13:00] VITALS: BP 117/53
[2017-10-30 16:39] LABS: BUN/Creatinine Ratio 30.2; Calcium 8.2 mg/dL (8.5-10.1); Potassium 4.9 mmol/L (3.5-5.1)
[2017-10-30 16:40] LABS: Basophils # (auto) 0 uL; Eosinophils # (auto) 0.1 uL; Eosinophils % (auto) 1.1 % (0.0-7.0); Hemoglobin 8.4 g/dL (13.5-17.5); Lymphocytes # (auto) 0.7 uL; Monocytes # (auto) 0.4 uL
[2017-10-30 16:42] LABS: Basophils % (auto) 0.5 % (0.0-2.0); Hematocrit 25.2 % (41.0-53.0); Lymphocytes % (auto) 12.3 % (10.0-50.0); Mean Corpuscular Hemoglobin 31.8 pg (28.0-32.0); Mean Corpuscular Hgb Conc. 33.5 g/dL (32.0-36.0); Mean Corpuscular Volume 95.2 fL (80.0-100.0); Monocytes % (auto) 6.7 % (0.0-12.0); Neutrophils # (auto) 4.6 uL; Neutrophils % (auto) 79.4 % (37.0-80.0); Nucleated Red Blood Cells % 0.2 %; Platelet Count (auto) 233 10^3/uL (140-450); Red Blood Cells 2.65 10^6/uL (4.5-5.90); Red Cell Distribution Width 17.4 % (11.8-14.3); White Blood Cell 5.8 10^3/uL (4.4-10.8)
[2017-10-30 17:01] LABS: INR 1.02 (0.9-1.15); Partial Thromboplastin Time 34.8 sec (22.64-33.71); Prothrombin Time 11.1 sec (9.37-12.3)
== END | disposition home or self-care (01) ==
LOC: CHF HDHVI 10:53
PROVIDERS: ATTEND Internal Medicine Cardiovascular Disease
DX: I11.0 Hypertensive heart disease with heart failure (principal); I50.9 Heart failure, unspecified; C22.9 Malignant neoplasm of liver, not specified as primary or secondary; D64.9 Anemia, unspecified; R79.1 Abnormal coagulation profile; E11.9 Type 2 diabetes mellitus without complications; R53.83 Other fatigue; R18.8 Other ascites
CPT/HCPCS: 36415; 80048; 82962; 83880; 85025; 85610; 85730; G0463; J1642

== ENCOUNTER 2017-10-31 11:50 | Day surgery (SDC) | payer MEDICARE, OTHER | END 2017-10-31 15:35 | disposition home or self-care (01) | LOC: CATH 11:50 | PROVIDERS: ATTEND Internal Medicine Cardiovascular Disease | DX: R18.8 Other ascites (principal); C78.89 Secondary malignant neoplasm of other digestive organs; I25.5 Ischemic cardiomyopathy; I50.21 Acute systolic (congestive) heart failure; I73.9 Peripheral vascular disease, unspecified; E11.40 Type 2 diabetes mellitus with diabetic neuropathy, unspecified | CPT/HCPCS: 49082; 82962 ==

== ENCOUNTER → 2017-11-01 | Outpatient (CLI) | payer MEDICARE, OTHER ==
[~2017-11-01] MED LIST changes: +IOHEXOL 350 MG/ML 100ML IJ ONE
[2017-11-01 13:10] VITALS: BP 106/44
[2017-11-01 14:21] VITALS: BP 104/48
[2017-11-01 16:48] LABS: Basophils # (auto) 0 uL; Basophils % (auto) 0.4 % (0.0-2.0); Eosinophils # (auto) 0 uL; Eosinophils % (auto) 0.7 % (0.0-7.0); Lymphocytes # (auto) 0.8 uL; Monocytes # (auto) 0.5 uL; Monocytes % (auto) 7.9 % (0.0-12.0)
[2017-11-01 16:50] LABS: Hematocrit 25.1 % (41.0-53.0); Hemoglobin 8.2 g/dL (13.5-17.5); Lymphocytes % (auto) 13.8 % (10.0-50.0); Mean Corpuscular Hemoglobin 31.1 pg (28.0-32.0); Mean Corpuscular Hgb Conc. 32.8 g/dL (32.0-36.0); Mean Corpuscular Volume 94.9 fL (80.0-100.0); Neutrophils # (auto) 4.5 uL; Neutrophils % (auto) 77.2 % (37.0-80.0); Nucleated Red Blood Cells % 0.1 %; Platelet Count (auto) 239 10^3/uL (140-450); Red Blood Cells 2.64 10^6/uL (4.5-5.90); Red Cell Distribution Width 17.2 % (11.8-14.3); White Blood Cell 5.8 10^3/uL (4.4-10.8)
[2017-11-01 17:10] LABS: Potassium 4.5 mmol/L (3.5-5.1)
== END | disposition home or self-care (01) ==
LOC: Rad HDHVI 13:18
PROVIDERS: ATTEND Internal Medicine Cardiovascular Disease
DX: I50.9 Heart failure, unspecified (principal); D64.9 Anemia, unspecified; E87.5 Hyperkalemia; R94.4 Abnormal results of kidney function studies; K80.20 Calculus of gallbladder without cholecystitis without obstruction; R60.0 Localized edema; J90 Pleural effusion, not elsewhere classified; I70.0 Atherosclerosis of aorta; C22.8 Malignant neoplasm of liver, primary, unspecified as to type; I70.201 Unspecified atherosclerosis of native arteries of extremities, right leg; Z95.0 Presence of cardiac pacemaker
CPT/HCPCS: 36415; 70491; 75635; 82565; 83880; 84132; 84520; 85025; 96374; G0463; J1642

== ENCOUNTER → 2017-11-06 | Outpatient (CLI) | payer MEDICARE, OTHER ==
[~2017-11-06] MED LIST changes: -IOHEXOL 350 MG/ML 100ML IJ ONE
[2017-11-06 11:30] VITALS: BP 120/50
[2017-11-06 12:42] LABS: Basophils # (auto) 0 uL; Basophils % (auto) 0.4 % (0.0-2.0); Eosinophils # (auto) 0.1 uL; Eosinophils % (auto) 0.8 % (0.0-7.0); Hematocrit 26.3 % (41.0-53.0); Hemoglobin 8.5 g/dL (13.5-17.5); Lymphocytes # (auto) 1.1 uL; Lymphocytes % (auto) 16.4 % (10.0-50.0); Mean Corpuscular Hemoglobin 30.6 pg (28.0-32.0); Mean Corpuscular Hgb Conc. 32.5 g/dL (32.0-36.0); Mean Corpuscular Volume 94.4 fL (80.0-100.0); Monocytes # (auto) 0.4 uL; Monocytes % (auto) 6.8 % (0.0-12.0); Neutrophils # (auto) 4.9 uL; Neutrophils % (auto) 75.6 % (37.0-80.0); Nucleated Red Blood Cells % 0.1 %; Platelet Count (auto) 240 10^3/uL (140-450); Red Blood Cells 2.78 10^6/uL (4.5-5.90); Red Cell Distribution Width 17.1 % (11.8-14.3); White Blood Cell 6.5 10^3/uL (4.4-10.8)
[2017-11-06 12:50] LABS: BUN/Creatinine Ratio 18.6; Magnesium 2.9 mg/dL (1.6-2.6); Potassium 4.9 mmol/L (3.5-5.1)
== END | disposition home or self-care (01) ==
LOC: CHF HDHVI 10:08
PROVIDERS: ATTEND Internal Medicine Cardiovascular Disease
DX: I11.0 Hypertensive heart disease with heart failure (principal); I50.9 Heart failure, unspecified; E83.40 Disorders of magnesium metabolism, unspecified; D64.9 Anemia, unspecified
CPT/HCPCS: 36415; 80048; 83735; 83880; 85025; G0463; J1642